=== PATIENT | male | born 1950 | race Caucasian/White ===

== ENCOUNTER 2022-05-26 17:14 | Inpatient (IN) | payer OTHER ==
[~2022-05-26] VITALS: Ht 172.7 cm; Wt 113.9 kg
[2022-05-26 17:40] VITALS: BP 132/81
--- NOTE | 2022-05-26 17:40 | NUR ---
Pt to bed 04 at this time.
--- NOTE | 2022-05-26 17:40 | NUR ---
72 y/o Male BIBA for c/o resp distess.Pt is AOx1(Baseline x 4), resp even and labored. Tachypneic and with a non-productive cough. Abd pain x 4 quadrants upon palpation. +BS x 4. Weak pedal pulses. Lungs c/d bilat. Currently on 15LPM VNRB. Pmhx: hypothyroidism, UTI Home meds: apixaban, diltiazem, amiodarone See chart for remainder
[2022-05-26] MEDS ORDERED: CEFEPIME 1,000 MG in DEXTROSE 5% 50 ML IV ONE (17:45)
[2022-05-26] MEDS ORDERED: NACL 0.9% 2,000 ML IV SCH (17:45)
--- NOTE | 2022-05-26 17:45 | NUR ---
Per meredith Ho to use PICC line for medication administration and blood draws.
[2022-05-26 18:15] LABS: BASOPHILS % (AUTO) 0.1 % (0.0-2.0); HEMATOCRIT 26.1 % (36-52); HEMOGLOBIN 8.3 g/dL (12.0-18.0); LYMPHOCYTES # (AUTO) 1.1 K/uL (2.0-11.5); LYMPHOCYTES % (AUTO) 9.8 % (20.5-51.1); MEAN CORPUSCULAR HEMOGLOBIN 30 pg (27-31); MEAN CORPUSCULAR HGB CONC 32 g/dL (33-37); MEAN CORPUSCULAR VOLUME 93.3 fL (80-94); MONOCYTES # (AUTO) 0.6 K/uL (0.8-1.0); NEUTROPHILS % (AUTO) 85.1 % (42.2-75.2); PLATELET COUNT (AUTO) 235 K/uL (140-450); RED BLOOD CELL COUNT(AUTO) 2.79 MIL/uL (4.20-6.10); RED CELL DISTRIBUTION WIDTH 16.1 % (11.6-13.7); WHITE BLOOD COUNT (AUTO) 11.7 K/uL (4.8-10.8)
[2022-05-26 18:49] LABS: ALBUMIN 1.2 g/dL (3.4-5.0); ANION GAP 10.9 (8-16); ASPARTATE AMINOTRANSFERASE 21 U/L (15-37); CARBON DIOXIDE 25.8 mmol/L (21-32); CHLORIDE 105 mmol/L (98-107); GLUCOSE 111 mg/dL (74-106); POTASSIUM 3.7 mmol/L (3.5-5.1); SODIUM SERUM 138 mmol/L (136-145); TOTAL BILIRUBIN 0.3 mg/dL (0.0-1.0); UREA NITROGEN, BLOOD 57 mg/dL (7-18)
[2022-05-26] MEDS ORDERED: CEFEPIME 1,000 MG VIAL ONE (18:53)
--- NOTE | 2022-05-26 19:08 | NUR ---
Pt from facility with F/C, replaced per order from Dr Lamb
--- NOTE | 2022-05-26 19:13 | NUR ---
Dr Lamb aware of all critical labs posted to system
[2022-05-26 19:22] LABS: APPEARANCE,URINE CLEAR (CLEAR); BILIRUBIN,URINE NEGATIVE (NEGATIVE); BLOOD, URINE 3+ (NEGATIVE); COLOR,URINE AMBER (YELLOW); LEUKOCYTE ESTERASE ,URINE TRACE (NEGATIVE); NITRITE, URINE NEGATIVE (NEGATIVE); UGLUCOSE NEGATIVE (NEGATIVE)
--- NOTE | 2022-05-26 19:22 | NUR ---
Dr Lamb present to view monitor aware of HR. NNO at this time
--- NOTE | 2022-05-26 19:35 | NUR ---
Pt report given to STELLA Van. Transfer of care at this time.
[2022-05-26 19:36] LABS: RBC,URINE 20-50 /HPF (0-5); WBC,URINE 0-5 /HPF (0-5)
[2022-05-26 19:37] LABS: OTHER CASTS, URINE None Seen /LPF (None Seen)
[2022-05-26] MEDS ORDERED: methylPREDNISolone SS 125 MG/2 ML VIAL IVP ONE (20:00)
[2022-05-26] MEDS ORDERED: methylPREDNISolone SS 125 MG/2 ML VIAL ONE (22:50)
--- NOTE | 2022-05-27 00:34 | NUR ---
PERICARE PERFORMED. MEPILEX IN PLACE OVER SMALL OPEN EXCORIATED SKIN. + SMALL LOOSE BM NOTED. PT TO BE ADMITTED TO THE FLOOR.
--- NOTE | 2022-05-27 01:29 | NUR ---
ATTEMPTED TO GIVE REPORT. RN TO CALL BACK FOR REPORT.
--- NOTE | 2022-05-27 02:09 | NUR ---
REPORT GIVEN TO LOUISA. PT IN STABLE CONDITION. TO BE TRANSPORTED TO ROOM 120B BY VERO ESCORTED BY RN AND EMT.
--- NOTE | 2022-05-27 02:30 | NUR ---
RECEIVED PT FROM ER CAME VIA VERO ADMITTED TO [facility] WITH CHIEF COMPLAINTS OF SOB, ABDOMINAL PAIN, DIAGNOSIS: ACUTE HYPOXIC RESPIRATORY FAILURE, ANEMIA, HYPERCALCEMIA, RENAL INSUFFICIENCY, CARDIOMEGALY AND ACUTE CYSTITIS/HEMATURIA. PT IS ABLE TO RESPONSE VERBALLY. PT IS WITH GENERAL BODY WEAKNESS, ABLE TO RESPONSE VERBALLY WITH 1 OR 2 WORDS THEN PT OUT AND NOT RESPONDING. MIDLINE OF SINGLE LUMEN IS ON RIGHT UPPER ARM INTACT AND PATENT. PT HAS RUTLEDGE CATHETER INTACT AND PATENT, DRAINING URINE OF YELLOW AND CLEAR COLOR. PT IS WITH NON PITTING EDEMA ON BLE. WILL CONTINUE TO MONITOR.
[2022-05-27] MEDS ORDERED: LEVOFLOXACIN 500 MG/D5W PREMIX 100 ML IV SCH (03:10)
[2022-05-27 04:00] VITALS: BP 115/63
[2022-05-27] MEDS: LEVOFLOXACIN 750 MG/D5W PREMIX 150 ML IV SCH (05:00)
[2022-05-27] MEDS: methylPREDNISolone SS 125 MG/2 ML VIAL IVP SCH ×3 (05:00→20:28)
[2022-05-27 06:00] VITALS: BP 128/60
--- NOTE | 2022-05-27 07:30 | NUR ---
RECEIVED REPORT FROM NIGHTSHIFT NURSE. PT A/O X 0. PT LETHARGIC. SOB NOTED. HOB ELEVATED. ON 3L NC. RUTLEDGE VIA GRAVITY. JASPAL MIDLINE. NEEDS ALL MET AT THIS TIME. ALL SAFETY MEASURES IN PLACE.
[2022-05-27 08:00] VITALS: BP 118/60
[2022-05-27] MEDS ORDERED: HYDROcodone/APAP 7.5/325 MG 1 TAB PO PRN (08:00)
[2022-05-27] MEDS ORDERED: guaiFENesin DM 200/20 MG-10 ML 10 ML UDC PO PRN (08:00)
[2022-05-27] MEDS ORDERED: ACETAMINOPHEN 325 MG TAB PO PRN (08:00)
[2022-05-27] MEDS ORDERED: DOCUSATE SODIUM 100 MG GELCAP PO PRN (08:00)
[2022-05-27] MEDS ORDERED: ONDANSETRON 4 MG/2 ML VIAL IM/IVP PRN (08:00)
[2022-05-27] MEDS ORDERED: ZOLPIDEM 5 MG TAB PO PRN (08:00)
[2022-05-27] MEDS ORDERED: POTASSIUM CHLORIDE 10 MEQ TABER PO PRN (08:00)
--- NOTE | 2022-05-27 08:25 | NUR ---
ULTRASOUND OF KIDNEYS COMPLETED AT BEDSIDE. FOUNTAIN BRUSH ASSEMBLER INFORMED O2 SATURATION @ 86%. CONNECTED PT TO CONTINUOUS PULSE OX. O2 SATURATION @ 91%. RT AT BEDSIDE. O2 SATURATION @ 92%. MEDICAL STUDENT AT BEDSIDE. SAFETY MEASURES IN PLACE.
[2022-05-27] MEDS: PANTOPRAZOLE 40 MG TABEC PO SCH (09:00)
[2022-05-27] MEDS: APIXABAN 2.5 MG TAB PO SCH ×2 (09:05→20:31)
[2022-05-27] MEDS: DILTIAZEM 60 MG TAB PO SCH ×2 (09:05→20:30)
--- NOTE | 2022-05-27 09:17 | NUR ---
SMALL AMOUNT OF APPLESAUCE GIVEN AND PT UNABLE TO SWALLOW. APPLESAUCE SUCTIONED OUT VIA ORAL SUCTION. PT TOLERATED WELL. NO SIGNS OF ASPIRATION. O2 SATURATION @ 94%. HOB ELEVATED. WILL CONTACT .
--- NOTE | 2022-05-27 09:36 | NUR ---
CONTACTED MD REGARDING PT UNABLE TO SWALLOW. MD ORDER FOR PT TO BE NPO. ORDERS INPUTTED.
--- NOTE | 2022-05-27 10:59 | NUR ---
DC PLANNIN YRS OLD MALE PATIENT WAS ADMITTED FROM [facility] WITH A DX OF HYPERCALCEMIA, HYPOXIA. CALCIUM LEVEL ON ADMISSION 14.0 ON HIGH FLOW 15L/NC . CXR SHOWED CARDIOMEGALY WITH BIBASILAR PATCHY INFILTRATES. RAPID COVID TEST NEGATIVE. ADMINISTERED IVF, IV ABX ZOSYN AND CONTINUED HOME MEDS. CONSULTED WITH PULMO, CARDIO AND NEPHRO. DC PLAN TO RETURN TO [facility] WHEN STABLE CM TO FOLLOW Addendum: 06/03/22 at 1116 by Kim Bill RN DC PLANNING: PATIENT CODED ON 05/28 AT 1212 INTUBATED SEDATED, ON LEVOPHED ,PROPOFOL, VASOPRESSIN AND VERSED DRIP. CONTINUED IV ABX ZOSYN, FLAGYL AND FLUCONAZOLE. ON HEMODIALYSIS. DR ALVAREZ REACHED OUT THE FAMILY AND FAMILY STATED WILL COME TO SEE PATIENT AND MAKE A DECISION. DC PLAN AWAITING FOR FAMILY. CM TO FOLLOW
--- NOTE | 2022-05-27 11:07 | NUR ---
SCREEN FOR LOW ISHMAEL SCALE AT RISK, CONTINUE TO FOLLOW PRESSURE ULCER PREVENTION INTERVENTIONS. -TURN AND REPOSITION PATIENT Q 2H, ASSIST IF NEEDED -ASSESS AND MONITOR SKIN CONDITION DURING POSITION CHANGES -OFFLOAD BILATERAL HEELS BY PLACING PILLOWS UNDER CALVES AT ALL TIMES, UNLESS OTHERWISE CONTRAINDICATED -PRESSURE REDISTRIBUTION BY PLACING PILLOWS AND OFFLOADING SACRALCOCCYX -KEEP SKIN CLEAN AND DRY AT ALL TIMES.
[2022-05-27 11:28] LABS: BASOPHILS % (AUTO) 0.1 % (0.0-2.0); HEMATOCRIT 24.9 % (36-52); LYMPHOCYTES # (AUTO) 0.5 K/uL (2.0-11.5); LYMPHOCYTES % (AUTO) 4.6 % (20.5-51.1); MEAN CORPUSCULAR HEMOGLOBIN 30 pg (27-31); MEAN CORPUSCULAR HGB CONC 32 g/dL (33-37); MEAN CORPUSCULAR VOLUME 93.9 fL (80-94); MONOCYTES # (AUTO) 0.1 K/uL (0.8-1.0); MONOCYTES % (AUTO) 1.2 % (1.7-9.3); NEUTROPHILS # (AUTO) 9.7 K/uL (1.8-7.7); NEUTROPHILS % (AUTO) 94.1 % (42.2-75.2); PLATELET COUNT (AUTO) 205 K/uL (140-450); RED BLOOD CELL COUNT(AUTO) 2.65 MIL/uL (4.20-6.10); RED CELL DISTRIBUTION WIDTH 15.8 % (11.6-13.7); WHITE BLOOD COUNT (AUTO) 10.3 K/uL (4.8-10.8)
[2022-05-27 11:46] LABS: ANION GAP 9.2 (8-16); CARBON DIOXIDE 25.5 mmol/L (21-32); CHLORIDE 111 mmol/L (98-107); GLUCOSE 131 mg/dL (74-106); POTASSIUM 3.7 mmol/L (3.5-5.1); SODIUM SERUM 142 mmol/L (136-145)
[2022-05-27 11:50] LABS: UREA NITROGEN, BLOOD 65 mg/dL (7-18)
[2022-05-27 12:00] VITALS: BP 122/67
--- NOTE | 2022-05-27 12:00 | NUR ---
CONTACTED MD REGARDING CALCIUM LEVEL AND PT'S (LISAS) INFORMATION ON PT'S WEIGHT LOSS AND LOSS OF APPETITE. NEEDS ALL MET AT THIS TIME. PT'S O2 SATURATION @ 92%. PT IS MORE ALERT THAN THIS AM. PT ABLE TO ANSWER YES AND NO QUESTIONS. ALL NEEDS MET. ALL SAFETY MEASURES IN PLACE.
[2022-05-27 12:02] LABS: CHOL/HDL RATIO 1.9 (1-4.5); FREE T4 (FREE THYROXINE) 1.09 ng/dL (0.76-1.46); MAGNESIUM 1.5 mg/dL (1.8-2.4); PHOSPHORUS 3.6 mg/dL (2.5-4.9); THYROID STIMULATING HORMONE 1.17 uIU/mL (0.34-3.74)
[2022-05-27] MEDS ORDERED: PAMIDRONATE IV SCH (14:00)
[2022-05-27] MEDS ORDERED: NACL 0.9% IV SCH (14:00)
--- NOTE | 2022-05-27 14:00 | NUR ---
PT ON 4.5L WITH HUMIDIFIER VIA NC. 02 SATURATION @ 93%. HOB ELEVATED. BRIDGE EXPERT AT BEDSIDE.
--- NOTE | 2022-05-27 15:24 | NUR ---
PT NOTED WITH COUGH AND GURGLING. O2 SATURATION @ 68%, HR @ 106. RT CALLED AND PT SUCTIONED. BLOOD GLUCOSE VIA FINGERSTICK IS 109. VITAL SIGNS: 98.6, 98, 16, 136/63, 97% ON 15L HIGH FLOW. HOB ELEVATED. ALL SAFETY MEASURES IN PLACE.
--- NOTE | 2022-05-27 15:26 | NUR ---
RT NOTES RT CALLED TO PT ROOM DUE TO PT DESATURATION TO THE 60s. PUT PT ON 15L GREEN NC WITH HUMIDIFIER. RT NTS PT AND GOT LRG THICK MCCURDY SECRETIONS OUT. PT FOLLOWED INSTRUCTIONS TO COUGH WHILE SUCTIONING WAS TAKING PLACE. AFTER SUCTIONING PT STATED HE COULD BREATHE BETTER WHEN ASKED. SATURATIONS WENT UP TO 96%. NURSE AND RT AT BEDSIDE. WILL CONTINUE TO MONITOR.
[2022-05-27 16:00] VITALS: BP 118/78
--- NOTE | 2022-05-27 16:30 | NUR ---
CONTACTED MD REGARDING MAGNESIUM LEVEL. MD WILL INPUT ORDERS. WILL ADMINISTER PER MD ORDER.
--- NOTE | 2022-05-27 16:54 | NUR ---
P.T. NOTES HOLD P.T. EVAL AT THIS TIME DUE TO RESP ISSUES; FF UP TOMORROW IF ABLE.
[2022-05-27] MEDS ORDERED: MAG SULF 2000 MG/WATER PREMIX 50 ML IV SCH (17:00)
--- NOTE | 2022-05-27 19:10 | NUR ---
REPORT GIVEN TO NIGHTSHIFT NURSEGUERITA. JORDAN BRITO.
--- NOTE | 2022-05-27 19:20 | NUR ---
RECEIVED PATIENT IN BED, ASLEEP, OPENS EYES ON VERBAL STIMULI. NO S/SX OF PAIN NOR DISCOMFORT. NO ACUTE RESPIRATORY DISTRESS NOTED. SKIN WARM AND DRY TO TOUCH. BED IN THE LOWEST AND LOCKED POSITION FOR SAFETY, CALL LIGHT IN REACH.
[2022-05-27 20:00] VITALS: BP 145/68
[2022-05-27] MEDS: METOPROLOL 25 MG TAB PO SCH (20:31)
[2022-05-27 20:47] LABS: BARBITURATE, URINE NEGATIVE ng/ml (NEG <=200); BENZODIAZEPINE, URINE NEGATIVE ng/mL (NEG <=200); CANNABINOID, URINE NEGATIVE ng/mL (NEG <=50); COCAINE, URINE NEGATIVE ng/mL (NEG <=300); OPIATE, URINE NEGATIVE ng/mL (NEG <=2000); PHENCYCLIDINE SCREEN,URINE NEGATIVE ng/mL (NEG <=25)
--- NOTE | 2022-05-27 22:10 | NUR ---
PATIENT ASLEEP. BREATHING EVEN AND UNLABORED. CALL LIGHT IN REACH.
[2022-05-28] VITALS (28 sets, daily range): BP systolic 65–148; BP diastolic 39–114
--- NOTE | 2022-05-28 | NUR ---
REPOSITIONED FOR COMFORT. ORAL CARE DONE. NO DISTRESS NOTED. CALL LIGHT IN REACH.
--- NOTE | 2022-05-28 04:30 | NUR ---
AM CARE RENDERED, WOUND CARE DONE. REPOSITIONED FOR COMFORT. CALL LIGHT IN REACH.
[2022-05-28] MEDS: methylPREDNISolone SS 125 MG/2 ML VIAL IVP SCH ×3 (05:16→20:37)
[2022-05-28] MEDS: LEVOTHYROXINE 0.05 MG TAB PO SCH (05:20)
[2022-05-28 06:21] LABS: BASOPHILS % (AUTO) 0.2 % (0.0-2.0); EOSINOPHILS % (AUTO) 0.1 % (0.0-4.0); HEMATOCRIT 25.2 % (36-52); HEMOGLOBIN 8.1 g/dL (12.0-18.0); LYMPHOCYTES # (AUTO) 0.6 K/uL (2.0-11.5); LYMPHOCYTES % (AUTO) 5.4 % (20.5-51.1); MEAN CORPUSCULAR HEMOGLOBIN 30 pg (27-31); MEAN CORPUSCULAR HGB CONC 32 g/dL (33-37); MEAN CORPUSCULAR VOLUME 94.4 fL (80-94); MONOCYTES # (AUTO) 0.3 K/uL (0.8-1.0); MONOCYTES % (AUTO) 2.9 % (1.7-9.3); NEUTROPHILS # (AUTO) 9.5 K/uL (1.8-7.7); NEUTROPHILS % (AUTO) 91.4 % (42.2-75.2); PLATELET COUNT (AUTO) 213 K/uL (140-450); RED BLOOD CELL COUNT(AUTO) 2.67 MIL/uL (4.20-6.10); WHITE BLOOD COUNT (AUTO) 10.4 K/uL (4.8-10.8)
--- NOTE | 2022-05-28 06:21 | NUR ---
ALL NEEDS ATTENDED TO.NO DISTRESS NOTED. SAFETY PRECAUTIONS MAINTAINED DURING THE SHIFT. CALL LIGHT REMAINED WITHIN REACH.
[2022-05-28 07:21] LABS: ANION GAP 11.9 (8-16); CARBON DIOXIDE 23.4 mmol/L (21-32); CHLORIDE 116 mmol/L (98-107); GLUCOSE 137 mg/dL (74-106); POTASSIUM 3.3 mmol/L (3.5-5.1); SODIUM SERUM 148 mmol/L (136-145)
--- NOTE | 2022-05-28 07:30 | NUR ---
RECEIVED REPORT FROM NIGHTSHIFT NURSE. PT ASLEEP. SOB NOTED. HOB ELEVATED. ON 10L HIGH FLOW NC. RUTLEDGE VIA GRAVITY. JASPAL MIDLINE. NEEDS ALL MET AT THIS TIME. ALL SAFETY MEASURES IN PLACE.
[2022-05-28 07:52] LABS: CREATININE 2.3 mg/dL (0.6-1.3)
[2022-05-28 08:10] LABS: UREA NITROGEN, BLOOD 82 mg/dL (7-18)
[2022-05-28] MEDS: METOPROLOL 25 MG TAB PO SCH (09:00)
[2022-05-28] MEDS ORDERED: AMIODARONE 200 MG TAB PO SCH (09:00)
[2022-05-28] MEDS: DILTIAZEM 60 MG TAB PO SCH (09:00)
[2022-05-28] MEDS: APIXABAN 2.5 MG TAB PO SCH (09:00)
[2022-05-28] MEDS: PANTOPRAZOLE 40 MG TABEC PO SCH (09:00)
[2022-05-28] MEDS: DOXAZOSIN 2 MG TAB PO SCH (09:00)
[2022-05-28] MEDS ORDERED: hydrALAZINE 20 MG/ML VIAL IVP PRN (09:20)
[2022-05-28] MEDS: DEXT 5% /NACL 0.9% 1,000 ML IV SCH ×2 (09:34→20:09)
[2022-05-28] MEDS ORDERED: POTASSIUM CHLORIDE 40 MEQ, LIDOCAINE MPF 1% 25 MG in NACL 0.9% 250 ML IV ONE (10:00)
--- NOTE | 2022-05-28 11:20 | NUR ---
WAS NOTIFIED BY NURSE ESPARZA THAT PT HAD TO MOVE ROOMS. NURSE ESPARZA MOVING PT TO ROOM 111A AND RECONNECTED TO OXYGEN.
--- NOTE | 2022-05-28 11:24 | NUR ---
PT NOTED WITH OXYGEN @ 86%. OXYGEN INCREASED TO 15 L HIGH FLOW NC. RT CALLED. HOB ELEVATED. SUCTION CATHETER AT BEDSIDE WAITING FOR RT.
--- NOTE | 2022-05-28 11:25 | NUR ---
NURSE CALLED;PT SATURATION DROPPED TO THE 70S. NTS PT SATURATION IS 96%. SUCTIONED OUT THICK AMOUNT PALE YELLOW SPUTUM.
[2022-05-28] MEDS ORDERED: ALBUTEROL SULFATE/IPRATROPIU 3 ML SOL IH PRN (11:50)
[2022-05-28] MEDS ORDERED: guaiFENesin 20 MG/ML UDC PO PRN (11:50)
--- NOTE | 2022-05-28 11:50 | NUR ---
RAPID RESPONSE CALLED. PT O2 SATURATION @ 64%. RT AT BEDSIDE SUCTIONING WITH SUCTION TRAY [address] HANDLEY AND DR. KAPOOR AT BEDSIDE EXAMINING PT.
--- NOTE | 2022-05-28 12:00 | NUR ---
12:00 ETOMIDATE AND BEAU GIVEN PER MD ORDERED. PT INTUBATED AT 12:02 WITH 75 INCH AT TEETH WITH COLOR CHANGE DETECTOR. 12:12 CODE BLUE CALLED. SEE CODE BLUE SHEET. 12:18 PULSE CHECK WITH POSITIVE DOPPLER PULSE 12:30 BP 74/44, HR 113 12:30 REPORT GIVEN TO ICU NURSE FREEDOM. MD AT BEDSIDE INSERTING CENTRAL LINE. XRAY DONE AT BEDSIDE. MD OUTSIDE ROOM UPDATING EX- (SHARI ORTIZ). 12:50 CODE BLUE CALLED. REFER TO CODE BLUE SHEET 12:53 PULSE CHECK WITH POSITIVE DOPPLER PULSE 13:00 PT TRANSFERRED TO ICU. SPOKE WITH NURSE FREEDOM STATING CHRISTIANO MCKEON IS THE DECISION MAKER AND NOT SHARI DIANA. 13:05 SPOKE WITH DAUGHTER CHRISTIANO MCKEON WITH UPDATE AND TRANSFERRED PHONE CALL TO ICU.
--- NOTE | 2022-05-28 12:00 | NUR ---
RN CALLED PT SATS DROPPED TO THE 50S,RAPID CALLED, NTS 3 TIMES, PUT PT ON NR, RAPID RESPONSE TURNED CODE BLUE. INTUBATED WITH SIZE 7.5, 25@LIP. TRANSFERRED TO ICU BED 6 WITHOUT COMPLICATION. CURRENT SETTING ARE ACVC 550, R25, PEEP 10,100%. WHEELS ARE LOCKED AND PLUGGED INTO RED OUTLET, ALARMS ARE SET AND AUDIBLE, AMBUBAG AT BEDSIDE.
[2022-05-28] MEDS ORDERED: PROPOFOL 1000 MG/100 ML PREMIX 0 ML IV ONE (12:02)
[2022-05-28] MEDS ORDERED: PROPOFOL 1000 MG/100 ML PREMIX 100 ML IV ONE (12:03)
--- NOTE | 2022-05-28 12:23 | NUR ---
RECEIVED REPORT FROM ANA ANTOINE RN, AT 111A BEDSIDE, FOR CONTINUITY OF CARE. PT STILL IN TELE RECEIVING CENTRAL LINE INSERTION BY ER . WILL RECEIVE PT SHORTLY.
[2022-05-28] MEDS ORDERED: NOREPINEPHRINE 4 MG in DEXTROSE 5% 250 ML IV PRN (12:30)
[2022-05-28] MEDS: ALBUTEROL SULFATE/IPRATROPIU 3 ML SOL IH SCH ×2 (13:00→19:16)
--- NOTE | 2022-05-28 13:13 | NUR ---
PT ARRIVED TO ICU6 VIA TELE BED W ASSIST FROM RT AND CODE TEAM. PT SUPINE IN THE BED. PT AAOX0, NOT RESPONSIVE. ETT IN PLACE. RT BAGGING AT THIS TIME, SPO2 100%. JUNCTIONAL RHYTHM W PVCS HR 111, BP 113/87. JASPAL MIDLINE SINGLE LUMEN IN PLACE INFUSING LEVOPHED AT 8 MCG/MIN. RIJ CENTRAL LINE RECENTLY INSERTED PENDING PLACEMENT CONFIRMATION. NO GTUBE IN PLACE. BOWEL SOUNDS ACTIVE. FC TO GRAVITY. SEVERE WEAKNESS TO ALL EXTREMITIES. SKIN INTACT. ON STANDARD ISOLATION. CALL LIGHT WITHIN REACH. SAFETY PRECAUTIONS MET. INITIAL ASSESSMENT COMPLETE. WILL CONTINUE TO CLOSELY MONITOR.
--- NOTE | 2022-05-28 13:30 | NUR ---
NGT INSERTED TO L NARE.
--- NOTE | 2022-05-28 13:39 | NUR ---
PHONE CALL TO PT DAUGHTER CHRISTIANO AT [phone]. DISCUSSED PT CONDITION, PROGNOSIS, AND PLAN OF CARE. CHRISTIANO WISHES TO SPEAK W PT "PARTNER" SHARI. SHARI AT ICU STATION SPEAKING W CHRISTIANO VIA ICU PHONE. TOGETHER THEY AGREE TO CONTINUE FULL CODE. WILL CONTINUE TO UPDATE PT CHANGES.
--- NOTE | 2022-05-28 14:13 | NUR ---
SPOKE WITH DR KAPOOR VIA PHONE, HE ORDERED PHENYLEPHRINE DRIP AND VASOPRESSIN DRIP FOR BP SUPPORT.
--- NOTE | 2022-05-28 14:13 | NUR ---
05/28/22 RD INITIAL ASSESSMENT COMPLETED PLEASE REFER TO NUTRITION ASSESSMENT UNDER CARE ACTIVITY FOR ESTIMATED NUTRITIONAL NEEDS. 1. MONITOR NPO 2. CONSULT RD PRN. 3. RD TO FOLLOW-UP 2-3 DAYS, HIGH RISK REVIEWED BY LEE VALENCIA RD Addendum: 05/29/22 at [address] RECEIVED CONSULT FOR TUBE FEEDING. RECOMMEND NEPRO 1.8 WITH A GOAL RATE OF 40 ML/HR -FWF: 100 ML Q4H OR PER MD -START AT 10 ML/HR AND INCREASE BY 10 ML Q4H TOLERATED -WILL PROVIDE 100% OF ESTIMATED NUTRIENT NEEDS RD WILL CONTINUE TO MONITOR. LEE VALENCIA RD
[2022-05-28] MEDS ORDERED: PHENYLEPHRINE 10 MG in NACL 0.9% 250 ML IV PRN (14:15)
[2022-05-28] MEDS ORDERED: PROPOFOL 1000 MG/100 ML PREMIX 100 ML IV SCH (14:30)
[2022-05-28] MEDS ORDERED: VASOPRESSIN 20 UNITS in NACL 0.9% 250 ML IV SCH (14:55)
[2022-05-28] MEDS: PROPOFOL 1000 MG/100 ML PREMIX 100 ML IV PRN ×2 (15:04→23:56)
--- NOTE | 2022-05-28 15:45 | NUR ---
DC PLANNING SW OUTREACHED TO [facility] TO GATHER COLLATERAL INFORMATION. SPOKE WITH [facility] FACILITY ADMIN. REECE REPORTS THAT PATIENT HAS BEEN IN SKILLED CARE SINCE APRIL 17. PT RECEIVES PHYSICAL THERAPY AND OCCUPATIONAL THERAPY. REECE REPORTS PATIENT HAS BEEN HOSPITALIZED OVER THE LAST FEW WEEKS. PATIENT WAS HOSPITALIZED WITH [facility] ON MAY 14, RETURNED TO THE FACILITY 05/19 AND WAS AGAIN ADMITTED ON 05/26 TO [facility]. REECE REPORTS SEEING RAPID DECLINE IN PATIENTS HEALTH OVER THE LAST FEW WEEKS. PATIENTS DAUGHTERCHRISTIANO [phone] WHO IS REPORTED TO BE ACTIVE IN PATIENTS CAR. PREVIOUS TO SNF PLACEMENT PATIENT WAS REPORTED TO LIVE WITH HIS PARTNER, SHARI. REECE REPORTS PATIENT HAS ABILITY TO MAKE NEEDS KNOWN AND RESPONDS WITH SHORT SIMPLE RESPONSES. PATIENT IS TOTAL ASSIST AND UTILIZES A WC AT FACILITY. DC PLAN IS FOR PATIENT TO RETURN TO WHEN MEDICALLY STABLE. SW ATTEMPTED TO MAKE CONTACT WITH PATIENTS DAUGHTERCHRISTIANO, TO GATHER ADDITIONAL INFORMATION AND TO OFFER RESOURCES, HOWEVER, UNSUCCESSFUL.
--- NOTE | 2022-05-28 16:00 | NUR ---
DR MILI ORTIZ AT BEDSIDE, DISCUSSED PT CONDITION AND RECENT EVENTS. ORDERED CTA CHEST STAT TO RULE OUT AORTIC DISSECTION AND/OR PULMONARY EMBOLISM. OBTAINED TELEPHONE CONSENT FROM PT DAUGHTER CHRISTIANO AT [phone]. WITNESS WITH MARNIE DOUGLAS. UPDATED CHRISTIANO REGARDING PT CONDITION AND PLAN OF CARE. ALL QUESTIONS ANSWERED.
[2022-05-28] MEDS: PHENYLEPHRINE 40 MG in NACL 0.9% 250 ML IV PRN ×2 (16:15→20:35)
[2022-05-28] MEDS: NOREPINEPHRINE 16 MG in DEXTROSE 5% 250 ML IV PRN (16:15)
--- NOTE | 2022-05-28 16:50 | NUR ---
TRANSFERRED PT TO AND FROM CT SAFELY. NO [id number]. PT RETURNED TO VENT SETTING ACVC 550,RR25,PEEP10,100%. WHEELS LOCKED AND VENT PLUGGED INTO RED OUTLET, ALARMS ARE SET AND AUDIBLE. AMBUBAG AT BEDSIDE.
--- NOTE | 2022-05-28 17:00 | NUR ---
PT TAKEN TO CT WITH ASSIST FROM JEFF DORSEY.
--- NOTE | 2022-05-28 17:33 | NUR ---
PT BACK TO ICU6 FROM CT.
--- NOTE | 2022-05-28 18:35 | NUR ---
reported cta chest results (bl pneumothorax) to dr swann and dr osman. dr osman order to obtain consent for bl chest tube insertion.
--- NOTE | 2022-05-28 19:08 | NUR ---
called pt daughter to update regarding pt condition and plan of care. obtained telephone informed consent from jacquelyn pt daughter for bl chest tube insertion. witness with lluvia mcgarry. jacquelyn verbalized understanding, all questions answered.
--- NOTE | 2022-05-28 19:15 | NUR ---
endorsed bedside report to gigi pike rn for continuity of care. pt in no acute distress. vss.
--- NOTE | 2022-05-28 19:15 | NUR ---
RECEIVED REPORT FROM FREEDOM DOUGLAS. PT IS SEMI-COMATOSE, HE RESPONDS MINIMALLY TO NOXIOUS STIMULI. HE CURRENTLY ON THE VENTILATOR VIA ETT S/P 3 CODE BLUES IN 1 HOUR TODAY. HE'S ON THREE PRESSOR TO MAINTAIN A SYSTOLIC BLOOD PRESSURE ABOVE 90. HIS CURRENT BLOOD PRESSURE IS 124/72. HIS SKIN IS SLIGHTLY DAMP AND THE COLOR IS PALE. NAIL BLACHING IS SLIGHTLY PROLONG HE IS WARM TO TOUCH. HE HAS A NGT IN THE LEFT NARE' NO FEEDING AT THIS TIME
--- NOTE | 2022-05-28 20:30 | NUR ---
DR. EVANS CALLED AND THE CHEST XRAY REPORT WAS READ TO HIM OVER THE PHONE ; HE SAID HE'D BE COMING IN T DO THE CHEST TUBE. PT HAS A RUTLEDGE CATH IN PLACE DRAINING A VERY SMALL AMT OF URINE , BUT THE OUTPUT IS CLOUDY AND BLOOD TINGED AND MAYBE PUSS IN THE URINE WELL.
--- NOTE | 2022-05-28 21:10 | NUR ---
DR. EVANS IS HERE ASSESSING THE PATIENT AFTER READING THE XRAY REPORT. BY 2129 HE IS PLACING THE CHEST TUBE INTO THE LEFT CHEST WALL. THE TUBE IS CONNECTED TO THE ATRIUM AND 20CM WATER IN THE RIRST CHAMBER AND THE 2ND CHAMBER IS FILLED TO THE BLUE FILL LINE . IT'S NOW CONNECT TO LOW CONTINOUS SUCTION. SUTURED THE TUBE IN PLACE AND PLACED A STERILE GUAZE DRSG AND TAPED IT IN PLACE. EXTRA TAPE WAS PLACE ON THE TUBE BELOW THE CHEST WAL TO PREVENT PULLING ON THE TUBE.XRAY WAS DONE TO VERIFY PROPER PLACEMENT OF THE CHEST TUBE.
[2022-05-28] MEDS ORDERED: LIDOCAINE MPF 1% 5 ML ONE ×2 (21:22→21:26)
[2022-05-28] MEDS ORDERED: MORPHINE SULFATE 4 MG/ML SYR ONE (21:25)
--- NOTE | 2022-05-28 21:35 | NUR ---
PEEP TITRATED FROM 12vxQ91 TO 5cmH20 AFTER CHEST TUBE PLACEMENT. DR. EVANS AT BEDSIDE. SPO2 100%. PT IS IN NO RESPIRATORY DISTRESS AT THIS TIME
[2022-05-28] MEDS ORDERED: LIDOCAINE MPF 1% 10 MG/ML VIAL INJ SCH (21:55)
[2022-05-28] MEDS ORDERED: MORPHINE SULFATE 4 MG/ML SYR IVP SCH (21:55)
[2022-05-28] MEDS: LIDOCAINE MPF 1% 10 MG/ML VIAL INJ SCH ×2 (22:22→22:23)
[2022-05-29] VITALS (53 sets, daily range): BP systolic 96–151; BP diastolic 51–82
[2022-05-29] MEDS: NOREPINEPHRINE 16 MG in DEXTROSE 5% 250 ML IV PRN (03:05)
--- NOTE | 2022-05-29 03:30 | NUR ---
PHONE CALL TO PTS DAUGHTER CHRISTIANO, UPDATED ON PTS PRESENT CONDITION.QUESTIONS ANSWERED
[2022-05-29] MEDS: PROPOFOL 1000 MG/100 ML PREMIX 100 ML IV PRN ×3 (04:30→18:32)
[2022-05-29] MEDS: LEVOFLOXACIN 750 MG/D5W PREMIX 150 ML IV SCH (04:45)
[2022-05-29] MEDS: methylPREDNISolone SS 125 MG/2 ML VIAL IVP SCH ×3 (04:46→20:06)
--- NOTE | 2022-05-29 06:14 | NUR ---
TEXT CONCERNING TO THE EXCESS FLUID INTAKE VS THE OUTPUT, 1718CC INTAKE AND 100CC OUTPUT. VENKAT TEXT DR. EVANS.
[2022-05-29 06:42] LABS: BASOPHILS % (AUTO) 0.2 % (0.0-2.0); HEMATOCRIT 24.7 % (36-52); HEMOGLOBIN 8.2 g/dL (12.0-18.0); LYMPHOCYTES # (AUTO) 0.4 K/uL (2.0-11.5); LYMPHOCYTES % (AUTO) 1.9 % (20.5-51.1); MEAN CORPUSCULAR HEMOGLOBIN 31 pg (27-31); MEAN CORPUSCULAR HGB CONC 33 g/dL (33-37); MEAN CORPUSCULAR VOLUME 92.6 fL (80-94); MONOCYTES # (AUTO) 1.1 K/uL (0.8-1.0); MONOCYTES % (AUTO) 5.8 % (1.7-9.3); NEUTROPHILS # (AUTO) 17.3 K/uL (1.8-7.7); NEUTROPHILS % (AUTO) 92.1 % (42.2-75.2); PLATELET COUNT (AUTO) 263 K/uL (140-450); RED BLOOD CELL COUNT(AUTO) 2.67 MIL/uL (4.20-6.10); RED CELL DISTRIBUTION WIDTH 15.9 % (11.6-13.7); WHITE BLOOD COUNT (AUTO) 18.8 K/uL (4.8-10.8)
[2022-05-29] MEDS: LEVOTHYROXINE 0.05 MG TAB PO SCH (06:44)
[2022-05-29 06:52] LABS: ANION GAP 15.5 (8-16); CARBON DIOXIDE 20.7 mmol/L (21-32); CHLORIDE 116 mmol/L (98-107); CREATININE 2.9 mg/dL (0.6-1.3); GLUCOSE 160 mg/dL (74-106); POTASSIUM 3.2 mmol/L (3.5-5.1); SODIUM SERUM 149 mmol/L (136-145)
[2022-05-29] MEDS: ALBUTEROL SULFATE/IPRATROPIU 3 ML SOL IH SCH ×3 (06:57→21:45)
--- NOTE | 2022-05-29 07:00 | NUR ---
RECEIVED PT ON ACVC TV550,RR25,+5,70%FIO2. WHEELS ARE LOCKED AND VENT PLUGGED INTO RED OUTLET. ALARMS ARE SET AND AUDIBLE. AMBUBAG AT BEDSIDE. DIMINISHED BREATH SOUNDS, SUCTIONED MODERATE AMOUNT OF THICK PALE SPUTUM, SATURATION ON 70%FIO2 WAS 98%.
--- NOTE | 2022-05-29 07:15 | NUR ---
REPORT RECEIVED FROM STELLA NAVARRO. PT SEDATED AND WITH ETT TO VENT ON ACVC MODE FIO2 70%. RATE 25 PEEP 5 TV 550. PATIENT HAS LEFT CHEST TUBE TO SUCTION, SUBCUTANEOUS EMPHYSEMA PRESENT TO LEFT CHEST. PATIENT HAS NOREPINEPHRINE INFUSING AT 15 MCG/MIN AND PROPOFOL AT 25 MCG/KG/MIN. PATIENT WITHDRAWS FROM DEEP STIMULUS TO RIGHT SIDE OF BODY--NO MOVEMENT NOTED TO LEFT, PERRL 2 mm BRISK PUPILS, POSITIVE COUGH AND GAG. PATIENT HAS RIGHT IJ TL CVC, R UPPER ARM MIDLINE, RUTLEDGE CATHETER. PATIENT HAS WOUND TO SACRUM.
[2022-05-29 07:22] LABS: UREA NITROGEN, BLOOD 102 mg/dL (7-18)
--- NOTE | 2022-05-29 08:30 | NUR ---
ATTEMPTED TO SEE PATIENT FOR PHYSICAL THERAPY EVALUATION HOWEVER PATIENT HAD CHANGE IN CONDITION AND IS NOW INTUBATED/ ICU STATUS. WILL NEED NEW ORDER WHEN PATIENT IS APPROPRIATE; AFRICAN STUDIES PROFESSOR AWARE.
--- NOTE | 2022-05-29 09:05 | NUR ---
DR. EVANS TO BEDSIDE. NEW ORDERS RECEIVED. REPORTED ELEVATED BUN AND CREATNINE. STATES THAT SUSPENDER MAKER CONSULTED AND WILL BE TO BEDSIDE FOR FOLLOW UP.
[2022-05-29] MEDS: DOXAZOSIN 2 MG TAB PO SCH (09:28)
[2022-05-29] MEDS: PANTOPRAZOLE 40 MG TABEC PO SCH (09:28)
--- NOTE | 2022-05-29 11:15 | NUR ---
DR. MERCADO TO BEDSIDE TO ASSESS PATIENT. ORDERS RECEIVED TO CONTINUE IV FLUIDS AT 80 ML/HR.
[2022-05-29] MEDS: DEXT 5% /NACL 0.9% 1,000 ML IV SCH ×2 (11:48→23:59)
[2022-05-29] MEDS ORDERED: PIPERACILLIN/TAZOBACTAM 2.25 GM in DEXTROSE 5% 50 ML IV SCH (13:00)
[2022-05-29] MEDS: PIPERACILLIN/TAZOBACTAM 2.25 GM in DEXTROSE 5% 50 ML IV SCH ×2 (13:12→18:18)
--- NOTE | 2022-05-29 13:50 | NUR ---
DR. GARCES AT BEDSIDE TO ASSESS PATIENT. NO NEW ORDERS RECEIVED.
--- NOTE | 2022-05-29 14:30 | NUR ---
DR. KAPOOR AT BEDSIDE TO ASSESS PATIENT. NO NEW ORDERS RECEIVED.
--- NOTE | 2022-05-29 15:15 | NUR ---
PATIENT'S EX-, SHARI, AT BEDSIDE TO VISIT. QUESTIONS ANSWERED ABOUT HIS CURRENT STATUS AND UPDATE FROM OVERNIGHT. SHE VERBALIZES UNDERSTANDING.
--- NOTE | 2022-05-29 19:45 | NUR ---
REPORT RECEIVED FROM AM SHIFT STELLA DYE. PATIENT RASS -3. VENT SETTINGS ACVC FI02 70 VT 550 RATE 25 PEEP 5 [address]PE[address] 23. CHEST TUBE IN PLACE TO LEFT LATERAL CHEST. NO OUTPUT NOTED AT THIS TIME. NGT TO LEFT NARES. TUBE FEEDING NEPRO 10ML/HR 100ML Q6HR FLUSH. RUTLEDGE CATHETER IN PLACE AND DRAINING WELL. SR TO BEDSIDE MONITOR. PERIPHERAL PULSES FELT TO ALL EXTREMITIES. IV ACCESS RIGHT IJ TRIPLE CVC AND MIDLINE TO JASPAL. LEVO 12MCG/MIN. PROPOFOL 20MCG/KG/MIN. D5NS 80ML/HR. NO S/SX OF PAIN NOTED AT THIS TIME. FLACC 0.
[2022-05-29] MEDS: POTASSIUM CHLORIDE 20% 40 MEQ/15 ML UDC GT PRN (20:06)
--- NOTE | 2022-05-29 22:00 | NUR ---
FLACC 0. ALL PM MEDS GIVEN.
[2022-05-30] VITALS (32 sets, daily range): BP systolic 80–128; BP diastolic 46–102
--- NOTE | 2022-05-30 01:00 | NUR ---
PT REPOSITIONED. RESIDUAL 30CC.
[2022-05-30] MEDS: NOREPINEPHRINE 16 MG in DEXTROSE 5% 250 ML IV PRN (01:45)
--- NOTE | 2022-05-30 03:00 | NUR ---
PT TEMP 98.2.
[2022-05-30] MEDS: methylPREDNISolone SS 125 MG/2 ML VIAL IVP SCH ×3 (05:35→21:22)
[2022-05-30 06:26] LABS: HEMATOCRIT 25.7 % (36-52); HEMOGLOBIN 8.2 g/dL (12.0-18.0); MEAN CORPUSCULAR HEMOGLOBIN 30 pg (27-31); MEAN CORPUSCULAR HGB CONC 32 g/dL (33-37); MEAN CORPUSCULAR VOLUME 93.6 fL (80-94); PLATELET COUNT (AUTO) 205 K/uL (140-450); RED BLOOD CELL COUNT(AUTO) 2.74 MIL/uL (4.20-6.10); RED CELL DISTRIBUTION WIDTH 16.2 % (11.6-13.7)
[2022-05-30] MEDS: PIPERACILLIN/TAZOBACTAM 2.25 GM in DEXTROSE 5% 50 ML IV SCH ×5 (06:31→20:25)
[2022-05-30] MEDS: LEVOTHYROXINE 0.05 MG TAB PO SCH (06:31)
[2022-05-30 06:52] LABS: ANION GAP 16.8 (8-16); CHLORIDE 115 mmol/L (98-107); CREATININE 3.3 mg/dL (0.6-1.3); GLUCOSE 156 mg/dL (74-106); POTASSIUM 3.8 mmol/L (3.5-5.1); SODIUM SERUM 148 mmol/L (136-145)
[2022-05-30] MEDS: ALBUTEROL SULFATE/IPRATROPIU 3 ML SOL IH SCH ×3 (06:56→19:24)
[2022-05-30 06:59] LABS: UREA NITROGEN, BLOOD 127 mg/dL (7-18)
--- NOTE | 2022-05-30 07:00 | NUR ---
RECEIVED PT ON ACVC TV 550,RR25,+5, 55%. SATURATION WAS 98%. VENT PLUGGED INTO RED OUTLET, WHEELS LOCKED, AMBUBAG AT BEDSIDE, ALARMS ARE SET AND AUDIBLE. DIMINISHED BREATH SOUNDS WERE HEARD ON AUSCULTATION, CHEST TUBE ON LEFT SIDE.
--- NOTE | 2022-05-30 07:10 | NUR ---
REPORT RECEIVED FROM STELLA BENOIT. PATIENT SEDATED WITH PROPOFOL INFUSION AND HAS ETT TO VENTILATOR. VENTILATOR MODE ACVC FIO2 55%, RATE 25, PEEP, 5, TV 550. PATIENT O2 SAT 97%. PATIENT HAS LEFT CHEST TUBE IN PLACE TO SUCTION. SUBCUTANEOUS EMPHYSEMA NOTED TO LEFT CHEST. PATIENT HAS NOREPINEPHRINE DRIP AT RATE 8 MCG/MIN. PATIENT HAS RIGHT IJ CVC, JASPAL MIDLINE, RIGHT NARE NGT WITH CONTINUOUS TUBE FEEDING, RUTLEDGE CATHETER WITH LOW UOP NOTED.
--- NOTE | 2022-05-30 07:23 | NUR ---
REPORT GIVEN TO AM SHIFT STELLA DYE.
[2022-05-30 07:34] LABS: LYMPHOCYTES % (MANUAL) 2 % (20-46); MONOCYTES % (MANUAL) 4 % (5-12); MYELOCYTES % 5 % (0-0); WHITE BLOOD COUNT (AUTO) 25.2 K/uL (4.8-10.8)
--- NOTE | 2022-05-30 08:52 | NUR ---
PATIENT'S DAUGHTER, CHRISTIANO CALLS FOR UPDATE ON CONDITION. QUESTIONS ANSWERED AND SHE VERBALIZES UNDERSTANDING. CHRISTIANO REQUESTS FOLLOW-UP CALL FROM MD IN CHARGE OF HER FATHER'S CARE. WILL RELAY INFORMATION OF CONVERSATION TO MD.
[2022-05-30] MEDS: PANTOPRAZOLE 40 MG INJ VIAL IVP SCH (09:27)
[2022-05-30] MEDS: PROPOFOL 1000 MG/100 ML PREMIX 100 ML IV PRN ×2 (09:30→15:58)
[2022-05-30] MEDS: DOXAZOSIN 2 MG TAB PO SCH (09:30)
--- NOTE | 2022-05-30 10:20 | NUR ---
DR. ALVAREZ AT BEDSIDE TO ASSESS PATIENT. STATES TO WEAN FIO2 ON VENTILATOR TO 50%--WEANED PER RT. DR. ALVAREZ INFORMED THAT PATIENT'S DAUGHTER, CHRISTIANO, WOULD LIKE AN UPDATE FROM .
--- NOTE | 2022-05-30 11:30 | NUR ---
DR. GAMING AT BEDSIDE TO EVALUATE PATIENT. SPEAKS WITH PATIENT'S DAUGHTER, CHRISTIANO, VIA TELEPHONE ABOUT PATIENT'S POTENTIAL NEED FOR DIALYSIS, RISKS AND BENEFITS ASSOCIATED WITH DIALYSIS. INFORMED CONSENT OBTAINED VIA TELEPHONE WITH 2 RN WITNESS. CHRISTIANO VERBALIZES UNDERSTANDING. NEW ORDERS RECEIVED.
[2022-05-30] MEDS: DEXTROSE 5% 1,000 ML IV SCH ×2 (12:09→21:28)
[2022-05-30] MEDS ORDERED: VANCOMYCIN PER PHARMACY MC PRN (13:20)
[2022-05-30] MEDS ORDERED: VANCOMYCIN 1,500 MG in DEXTROSE 5% 500 ML IV SCH (14:00)
--- NOTE | 2022-05-30 14:30 | NUR ---
PATIENT HAS LIQUID STOOL SPECIMEN SENT FOR C. DIFF. PATIENT ISOLATION INITIATED PER PROTOCOL. DR. KAPOOR NOTIFIED.
[2022-05-30 23:44] LABS: APPEARANCE,URINE CLOUDY (CLEAR); BILIRUBIN,URINE NEGATIVE (NEGATIVE); BLOOD, URINE 2+ (NEGATIVE); COLOR,URINE YELLOW (YELLOW); LEUKOCYTE ESTERASE ,URINE 2+ (NEGATIVE); NITRITE, URINE NEGATIVE (NEGATIVE); UGLUCOSE NEGATIVE (NEGATIVE)
[2022-05-31] VITALS (27 sets, daily range): BP systolic 92–123; BP diastolic 55–72
[2022-05-31 00:09] LABS: RBC,URINE 0-5 /HPF (0-5); YEAST,URINE Many /HPF (None Seen)
[2022-05-31 00:10] LABS: CALCIUM OXALATE CRYSTALS,UR 0-5 /HPF (None Seen); COARSE GRANULAR CASTS,URINE 0-2 /LPF (None Seen)
[2022-05-31] MEDS: PIPERACILLIN/TAZOBACTAM 2.25 GM in DEXTROSE 5% 50 ML IV SCH ×4 (00:54→17:37)
[2022-05-31] MEDS: PROPOFOL 1000 MG/100 ML PREMIX 100 ML IV PRN ×3 (01:03→18:14)
[2022-05-31] MEDS: methylPREDNISolone SS 125 MG/2 ML VIAL IVP SCH ×3 (04:51→21:10)
[2022-05-31 05:29] LABS: HEMATOCRIT 26.9 % (36-52); HEMOGLOBIN 8.6 g/dL (12.0-18.0); MEAN CORPUSCULAR HEMOGLOBIN 30 pg (27-31); MEAN CORPUSCULAR HGB CONC 32 g/dL (33-37); MEAN CORPUSCULAR VOLUME 93.6 fL (80-94); PLATELET COUNT (AUTO) 160 K/uL (140-450); RED BLOOD CELL COUNT(AUTO) 2.87 MIL/uL (4.20-6.10); RED CELL DISTRIBUTION WIDTH 16.3 % (11.6-13.7)
[2022-05-31 05:35] LABS: WHITE BLOOD COUNT (AUTO) 32.7 K/uL (4.8-10.8)
[2022-05-31] MEDS: LEVOTHYROXINE 0.05 MG TAB PO SCH (06:22)
[2022-05-31 06:48] LABS: MAGNESIUM 1.9 mg/dL (1.8-2.4); PHOSPHORUS 2.6 mg/dL (2.5-4.9)
[2022-05-31 06:50] LABS: ANION GAP 15.7 (8-16); CARBON DIOXIDE 19.2 mmol/L (21-32); CHLORIDE 108 mmol/L (98-107); CREATININE 3.4 mg/dL (0.6-1.3); GLUCOSE 193 mg/dL (74-106); POTASSIUM 3.9 mmol/L (3.5-5.1); SODIUM SERUM 139 mmol/L (136-145)
--- NOTE | 2022-05-31 06:54 | NUR ---
Pt remains intubated/sedated, prop20 RASS-3. E2M4Vi, [id number]. No movements to extremities. ETT7.5 24@lip AC25 550 50% +5, 25RR 100%SpO2. L chest tube to -20cm wall suction +airleak, -50ml ss drainage. Tmax 98.8. SR on monitor, Levo@4, MAP>65. TF tolerated. X2 watery stools overnight. Oliguric, UOP 125 via fc. RIJ TLC CVC, RA midline, sites unremarkable. Safety/aspiration precautions cont. Repositioned q2hr. WBC increased to 32.7 from 25.2, texted Dr Bedoya(ID).
[2022-05-31 06:58] LABS: BASOPHILS % (MANUAL) 0 % (0-2); CORRECTED WHITE BLOOD COUNT 30.8 K/uL (4.5-11.0); EOSINOPHILS % (MANUAL) 0 % (0-4); LYMPHOCYTES % (MANUAL) 4 % (20-46); MONOCYTES % (MANUAL) 5 % (5-12)
[2022-05-31 07:11] LABS: UREA NITROGEN, BLOOD 142 mg/dL (7-18)
[2022-05-31] MEDS: DEXTROSE 5% 1,000 ML IV SCH (08:49)
[2022-05-31] MEDS ORDERED: VANCOMYCIN 1,000 MG in DEXTROSE 5% 250 ML IV SCH (09:00)
[2022-05-31] MEDS: DOXAZOSIN 2 MG TAB PO SCH (09:00)
[2022-05-31] MEDS: PANTOPRAZOLE 40 MG INJ VIAL IVP SCH (10:13)
--- NOTE | 2022-05-31 10:27 | NUR ---
DR. WOODRUFF, SURGEON CAME & SAID TO GET READY WITH SUPPLIES, GLOVES SIZE 7, ULTRASOUND-GUIDED FOR HEMODIALYSIS CATHETER INSERTION, HEPARIN TO DWELL ON 2 PORTS OF HD CATHETER, GOWNS, CAPS, AND INSERTION TRAY, AFTER CONSENTS WAS OBTAINED FROM FAMILY. Addendum: 05/31/22 at 1146 by Agency Nurse 20, STELLA RN DR. WOODRUFF CAME AT 1125 AM
--- NOTE | 2022-05-31 10:42 | NUR ---
DR. GAMING (LACQUER SIZER) CAME, PATIENT STILL ANURIC, ON LEVOPHED, IVF DEXTROSE 5% WATER AT 100 MLS/HR. ORDERED TO GET CONSENT FOR HEMODIALYSIS CATHETER PLACEMENT AND HEMODIALYSIS CONSENT. INFORM DR. WOODRUFF, SURGEON. NOTED FREE WATER FLUSH 100 MLS. Q 6 HRS. WHICH IS TO BE CONTINUED, AND DISCONTINUE IVF DEXTROSE 5% 100 MLS PER HOUR.
--- NOTE | 2022-05-31 10:42 | NUR ---
LECTURER IN MARKETING AM ROUNDS DR. GAMING CAME & NOTED PATIENT ON FREE WATER FLUSH 100 MLS. Q6HRS., ORDERED TO DISCONTINUE 5% DEXTROSE 100 MLS/HR IVF, GET CONSENT FROM FAMILY ON DIALYSIS CATHETER INSERTION AND GET CONSENT FOR HEMODIALYSIS. ONCE CONSENT SIGNED, INFORM SURGERY TO PLACE HEMODIALYSIS CATHETER.
--- NOTE | 2022-05-31 11:00 | NUR ---
DR. ALVAREZ CAME ORDERED TO DECREASE PROPOFOL TO 10 MCG/KG/MINUTE. GET CONSENT FOR HEMODIALYSIS CATHETER INSERTION. DR. ALVAREZ TALKED TO DAUGHTER ABOUT PATIENT'S STATUS.
[2022-05-31] MEDS ORDERED: VANCOMYCIN 500 MG VIAL NG SCH (12:00)
[2022-05-31] MEDS: ALBUTEROL SULFATE/IPRATROPIU 3 ML SOL IH SCH ×2 (13:01→19:05)
[2022-05-31] MEDS: VANCOMYCIN HCL 25 MG/ML SOLN PO SCH ×2 (13:07→17:39)
[2022-05-31] MEDS: NOREPINEPHRINE 16 MG in DEXTROSE 5% 250 ML IV PRN (13:08)
--- NOTE | 2022-05-31 15:29 | NUR ---
1520 transfered patient to room 7 icu.
--- NOTE | 2022-05-31 16:00 | NUR ---
PATIENT HAD LARGE AMOUNT DIARRHEA, CLEANED, PLACED FLEXI-SEAL RECTAL TUBE FOR STOOL. WAS TURNED TO RIGHT SIDE, PT. STARTED TO DESATURATE, DOWN TO 83%. BVM WITH MAXIMUM OXYGEN ON FLOWMETER, STILL DESATURATED, INFORMED RT TO COME TO BEDSIDE, PLACED ON 100% FiO2. PATIENT HAD BILATERAL PNEUMOTHORAX, LEFT RIB FRACTURES, PLEURAL EFFUSION, SUBCUTANEOUS EMPHYSEMA ON CTA SCAN & LATEST CHEST XRAY SHOWS, SUBCUTANEOUS EMPHYSEMA STILL.
--- NOTE | 2022-05-31 17:00 | NUR ---
05/31/22 RD FOLLOW UP COMPLETED. PLEASE REFER TO NUTRITION ASSESSMENT UNDER CARE ACTIVITY FOR ESTIMATED NUTRITIONAL NEEDS. 1.CONTINUE NEPRO 1.8 @40ML/HR PT TOLERATES -FWF: 100 ML Q6H OR PER MD -WILL PROVIDE 100% OF ESTIMATED NUTRIENT NEEDS 2.MONITOR FOR ABDOMINAL DISTENSION/TUBE FEEDING TOLERANCE/GASTRIC RESIDUAL 3.RD TO FOLLOW-UP IN 2-3 DAYS PATIENT IS HIGH RISK. SUSIE BARRAGAN RD
--- NOTE | 2022-05-31 19:20 | NUR ---
RECEIVED PATIENT ON BED WITH HOB ELEVATED TO 30 DEGREE, SEDATED WITH CONTINOUS PROPOFOL DRIP AT 10 MCG/KG/MIN. ORALLY INTUBATED AND VENTILATED AT 50% FI02 SO2 98%, CARDIACSCOPE SHOWS ON SINUS RHYTHM HR 81/MIN.NO ARRHYTHMIAS SEEN. ON LEVOPHED DRIP AT 4 MCG/MIN VIA CENTRAL TO RIGHT I J; INTACT. WITH CHEST TUBE ON LEFT SIDE OF THE CHEST TO CONTINUOUS WALL SUCTION, DRAINING TO SEROSANGUINOUS OUPUT. ABDOMEN IS SOFT, HYPOACTIVE BOWEL SOUNDS.ON CONTINUOUS TUBE FEEDING NEPRO AT 40 ML/HR, TOLERATED, NO RESIDUALS. WITH RUTLEDGE CATH IN SITU TO GRAVITY DRAINAGE BAG DRAINING TO CLEAR YELLOW WITH SEDIMENTS URINE OUTPUT, PATENT AND INTACT.
--- NOTE | 2022-05-31 20:00 | NUR ---
SUCTIONED DONE ORALLY AND THRU ETT, NOTED WITH GAG AND COUGH REFLEX NOTED.
--- NOTE | 2022-05-31 20:30 | NUR ---
CORI, DIALYSIS NURSE HERE TO DO HD BUT UNABLE TO CONTINUE DOING IT BECAUSE THE ACCESS LINE IS NOT GOOD ACCORDING TO HER.
--- NOTE | 2022-05-31 22:30 | NUR ---
TURNED AND REPOSITIONED PATIENT; ORAL CARE DONE WITH VAP KIT.
[2022-06-01] VITALS (26 sets, daily range): BP systolic 89–127; BP diastolic 44–68
[2022-06-01] MEDS: PIPERACILLIN/TAZOBACTAM 2.25 GM in DEXTROSE 5% 50 ML IV SCH ×4 (00:30→17:11)
[2022-06-01] MEDS: VANCOMYCIN HCL 25 MG/ML SOLN PO SCH ×4 (00:50→17:12)
[2022-06-01] MEDS ORDERED: HYDRAGUARD CREAM TP ONE (02:55)
--- NOTE | 2022-06-01 03:00 | NUR ---
MORNING BED BATH DONE; WOUND CARE DONE; KEPT CLEAN AND DRY AND COMFORTABLE.
[2022-06-01] MEDS ORDERED: HYDRAGUARD CREAM TP PRN (05:05)
[2022-06-01 05:33] LABS: CARBON DIOXIDE 18.1 mmol/L (21-32); CHLORIDE 104 mmol/L (98-107); CREATININE 3.7 mg/dL (0.6-1.3); GLUCOSE 137 mg/dL (74-106); POTASSIUM 4.1 mmol/L (3.5-5.1); SODIUM SERUM 136 mmol/L (136-145)
[2022-06-01 05:36] LABS: HEMATOCRIT 27.9 % (36-52); HEMOGLOBIN 8.8 g/dL (12.0-18.0); MEAN CORPUSCULAR HEMOGLOBIN 30 pg (27-31); MEAN CORPUSCULAR HGB CONC 32 g/dL (33-37); MEAN CORPUSCULAR VOLUME 94.9 fL (80-94); PLATELET COUNT (AUTO) 123 K/uL (140-450); RED BLOOD CELL COUNT(AUTO) 2.93 MIL/uL (4.20-6.10); RED CELL DISTRIBUTION WIDTH 16.3 % (11.6-13.7)
[2022-06-01 05:40] LABS: UREA NITROGEN, BLOOD 138 mg/dL (7-18)
[2022-06-01] MEDS: methylPREDNISolone SS 125 MG/2 ML VIAL IVP SCH ×2 (06:15→09:17)
[2022-06-01] MEDS: LEVOTHYROXINE 0.05 MG TAB PO SCH (06:46)
[2022-06-01] MEDS: ALBUTEROL SULFATE/IPRATROPIU 3 ML SOL IH SCH ×3 (07:00→18:50)
--- NOTE | 2022-06-01 07:25 | NUR ---
RECEIVED BEDSIDE REPORT FROM RYAN CONDUCTOR AND ENGINEER RN FOR CONTINUITY OF CARE. PT SEDATED, ABLE TO FOLLOW COMMANDS (SQUEEZES HAND, OPENS EYES). ETT TO VENT, ACVC FIO2 40%, VT 550, RR 25, PEEP 5. CHEST TUBE TO UPPER LEFT CHEST DRAINING LIGHT RED FLUID. SR ON MONITOR, MIDLINE TO JASPAL INFUSING NS TKO 5 ML/HR. TRIPLE LUMEN CENTRAL LINE TO RIJ INFUSING LEVO AT 4 MCG/MIN AND PROPOFOL AT 10 MCG/KG/MIN. [facility] HD CATH IN PLACE. GENERALIZED EDEMA. BOWEL SOUNDS ACTIVE. NGT TO R NARE INFUSING NEPRO TUBE FEED AT 40 ML/HR, FWF 100ML Q6. FLEXI-SEAL IN PLACE DRAINING DARK GREEN/BROWN STOOL. F/C TO GRAVITY DRAINING CLEAR YELLOW URINE. GENERALIZED WEAKNESS. BED IN LOWEST POSITION, CALL LIGHT WITHIN REACH.
[2022-06-01 07:33] LABS: WHITE BLOOD COUNT (AUTO) 39.7 K/uL (4.8-10.8)
[2022-06-01 07:34] LABS: LYMPHOCYTES % (MANUAL) 4 % (20-46); MONOCYTES % (MANUAL) 4 % (5-12)
--- NOTE | 2022-06-01 07:39 | NUR ---
SEEN AND EXAMINED BY DR. TAYLOR. ORDERS RECEIVED. Addendum: 06/01/22 at 1301 by Graciela Mohan RN [id number]
--- NOTE | 2022-06-01 09:05 | NUR ---
WOUND CARE EVALUATION NOTE: SKIN ASSESSMENT DONE WITH THIS 71 Y/O PT ADMITTED WITH INITIAL DX SHORTNESS OF BREATH, HYPERCALCEMIA, RECENT UTI. PAST MEDICAL HX INCLUDES HX CARDIAC DISORDERS (A. FIB). PT ADMITTED FROM SNF WITH PRESSURE INJURIES. ALL ABOVE INFORMATION OBTAINED FROM ADMISSION H&P AND CHART REVIEW. PT IS INTUBATED, TF, SKIN IS WARM AND DRY, BILATERAL UPPER AND LOWER EXTREMITIES +3 EDEMA. LEFT HAND ECCHYMOSIS. DORSAL PEDAL PULSES PRESENT AND DIMINISHES. CAPILLARY REFILLED >3 SEC. X 10 TOES. F/C PATENT WITH SMALL AMOUNT SANDRA COLOR URINE OUT PUT OBSERVED. FLEXI SEAL PATENT WATERY BROWN STOOL OUTPUT OBSERVED. PT. ON LEVOPHED DRIP FOR MAINTENANCE BP. ISHMAEL SCALE BETWEEN 9-11 HI RISK FOR DEVELOP UN-AVOIDABLE PRESSURE INJURY. PLAN OF CARE DISCUSSED WITH PRIMARY RN. POC DISCUSSED WITH DR. TAYLOR. COMORBIDITIES RELATED TO DELAY WOUND HEALING, FURTHER SKIN BREAKS ADVANCE AGE, INFECTION, KIDNEY FAILURE ON HD, ACUTE HYPOXEMIC DECREASE TISSUE PERFUSION LEAD TO TISSUE ISCHEMIA, DECREASE MOBILITY AND FUNCTIONAL ABILITIES, AND HOB ELEVATED THE MAJORITY OF TIMES DUE TO MEDICAL REASONS. INTEGUMENTARY: -LIPS AND ORAL MUCOSA DRY AND CLEAN. SKIN INTACT. -ABDOMEN DISTENDED, SOFT, TRUNK OF BODY WITH GENERALIZES EDEMA -UPPER ARMS MULTIPLE ECCHYMOSIS -MOISTURE ASSOCIATED DERMATITIS (MAD) TO: B/L GROINS TO SCROTAL, SKIN REDNESS -PRESSURE INJURY UN-STAGEABLE, COCCYX 1X1CM, 100% BROWN TISSUE, MOIST, NO ODOR, LINNEA-WOUND SKIN EXTENDED TO SACRAL FULL THICKNESS SKIN LOSS PRESSURE INJURY STAGE 3 WITH SURROUNDING NON-BLANCHABLE REDNESS INDICATED FURTHER DAMAGE. -SACRAL PRESSURE INJURY STAGE 3, 9X12X0.3CM,MEASUREMENT INCLUDING COCCYX 1X1CM BROWN ISSUE AND SACRAL WOUND BED RED GRANULATION TISSUE,AREA MOIST, NO ODOR, LINNEA WOUND SKIN MOIST IRREGULAR SHAPE, NON-BLANCHABLE REDNESS, FURTHER DAMAGE INDICATED -BLANCHABLE REDNESS LEFT AND RIGHT HEELS, SKIN MUSHY AND INTACT, HEEL PROTECTORS IN PLACE AND OFFLOADING WITH PILLOWS RECOMMENDATIONS: -APPLY THIN LAYER OF HYDRA GUARD TO EXTREMITIES AND TRUNK OF BODY, R/L GROINS EXTENDED TO SCROTAL AREA BID AND PRN IF SOILING -CLEANSE SACRALCOCCYX WITH NS, PAT DRY, APPLY THERAHONEY GEL WITH ADAPTIC DRESSING, COVER WITH DRY DRESSING QD AND PRN IF SOILING -POSITIONING: TURN AND REPOSITION PATIENT Q 2H OR SOONER USE PILLOWS TO KEEP BONY PROMINENCES FROM DIRECT CONTACT WITH SURFACES USE REPOSITIONING WEDGES TO PROVIDE 30-DEGREE ANGLE FOR SIDE LYING POSITIONS OFFLOADING OR FOAM DRESSING TO ALL TUBING TO PREVENT MEDICAL DEVICES RELATED PRESSURE INJURY -RE-EVALUATING AND MANAGING INCONTINENCE MONITOR SKIN CONDITION DURING POSITION CHANGE DO NOT MASSAGE REDNESS, BONY PROMINENCES, DO NOT USE DONUT-TYPE DEVICES FREQUENT LINNEA-CARE AND PROVIDE BARRIER CREAMS PRN IF SOILING MOISTURE CONTROL BY OFFER BED WADSWORTH/URINAL /ABSORBENT PAD TO WICK AND HOLD MOISTURE. KEEP SKIN DRY AND PROTECT FROM FRICTION -MANAGE FRICTION/SHEAR/MOBILITY KEEP HOB AT THE LOWEST LEVEL OF ELEVATION NO MORE THAN 30 DEGREES UNLESS OTHERWISE CONTRAINDICATED USE LIFT SHEET OR TRANSFER DEVICE TO MOVE PATIENT AND PREVENT LATERAL SHEER. CONSIDER TRAPEZE IF APPROPRIATE PROTECT HEELS, ELBOWS BONY PROMENANCES WITH SKIN BERRIES OR FOAM DRESSING IF EXPOSED TO FRICTION OFFLOAD BILATERAL HEELS BY PLACING PILLOWS UNDER CALVES AT ALL TIMES, UNLESS OTHERWISE CONTRAINDICATED -PRESSURE REDISTRIBUTION SURFACE THERAPY NÉSTOR ISOFLEX ALBERTO MATTRESS -NUTRITION: PLEASE FOLLOW RD RECOMMENDATIONS AND OFFER NUTRITION SUPPLEMENTS IF ORDERED.
[2022-06-01] MEDS: PANTOPRAZOLE 40 MG INJ VIAL IVP SCH (09:15)
[2022-06-01] MEDS: DOXAZOSIN 2 MG TAB PO SCH (09:16)
--- NOTE | 2022-06-01 11:10 | NUR ---
SEEN AND EXAMINED BY DR. LOPEZ. NO NEW ORDERS.
[2022-06-01] MEDS: PROPOFOL 1000 MG/100 ML PREMIX 100 ML IV PRN ×2 (11:40→21:18)
--- NOTE | 2022-06-01 12:22 | NUR ---
SEEN AND EXAMINED BY DR. GARCES. NO NEW ORDERS.
--- NOTE | 2022-06-01 12:35 | NUR ---
NGT FOUND TO BE COILED IN MOUTH, PAUSED FEEDING, INSTILLED AIR AND AUSCULTATED STOMACH. UNABLE TO HEAR ANYTHING. PULLED BACK ON NGT AND ADVANCED AT SAME MEASUREMENT. INSTILLED AIR AGAIN AND HEARD "WHOOSH" IN STOMACH. ORDERED STAT CXR.
--- NOTE | 2022-06-01 12:55 | NUR ---
XRAY AT BEDSIDE
[2022-06-01] MEDS: HYDRAGUARD CREAM TP SCH (13:00)
[2022-06-01] MEDS: THERAHONEY GEL 42.5 GM TP SCH (13:00)
--- NOTE | 2022-06-01 13:02 | NUR ---
SEEN AND EXAMINED BY DR. ALVAREZ, WHO CALLED AND SPOKE TO FAMILY. NO NEW ORDERS.
--- NOTE | 2022-06-01 14:00 | NUR ---
LATEST CXR SHOWS NGT LOCATED IN STOMACH, RESUMED FEEDING.
[2022-06-01] MEDS: FLUCONAZOLE 200 MG/NS PREMIX 100 ML IV SCH (18:18)
--- NOTE | 2022-06-01 19:15 | NUR ---
DR. WOODRUFF MADE ROUNDS, CHECKED THE NON FUNCTIONAL LEFT JUGULAR THADDEUS CATHETER AND ORDERED TO CONTACT THE FAMILY FOR CONSENT TO REPLACE THE THADDEUS CATHETER. CALLED CHRISTIANO (DAUGHTER) AND DR. WOODRUFF TALKED TO THE DAUGHTER OVER THE PHONE. CHRISTIANO DID NOT GIVE CONSENT TO INSERT A NEW THADDEUS CATHETER AND THE FAMILY WILL DECIDE UNTIL WEDNESDAY IF THEY WILL CHANGE THE CODE STATUS OR IF THEY WILL GIVE CONSENT TO REPLACE THE HEMODIALYSIS CATHETER, PER DR. WOODRUFF. WILL ENDORSE TO THE NEXT SHIFT.
--- NOTE | 2022-06-01 19:18 | NUR ---
ENDORSED BEDSIDE REPORT TO KELIN DOUGLAS FOR CONTINUITY OF CARE.
--- NOTE | 2022-06-01 19:24 | NUR ---
RECEIVED REPORT FROM STELLA SALAZAR. PT. AOX0 AND CONT. ON ETT WITH VENT SETTING RATE 25, FIO2 32%, TV 550, PEEP 5. ON SINUS RHYTHM WITH HR GREATER THAN 80. IV TO RIGHT UPPER ARM MIDLINE RUNNING NS TKO. IV TRIPLE LUMEN CENTRAL LINE CATHETER TO RIGHT JUGULAR INFUSING PROPOFOL DRIP AT 15 MCG/KG/MIN AND LEVOPHED DRIP 10 MCG/MIN. HEMODIALYSIS THADDEUS CATHETER TO LEFT JUGULAR NON FUNCTIONAL. PER REPORT PT. SUPPOSED TO HAVE INITIAL DIALYSIS, BUT SINCE CATHETER NOT WORKING, IT'S BEEN HOLD UNTIL FURTHER ORDER. SKIN NOT INTACT, PLEASE SEE WOUND DOCUMENTATION. THE LEFT UPPER MIDAXILLARY CHEST TUBE ON SUCTION AND WORKING WELL. RUTLEDGE CATHETER ON GRAVITY WITH YELLOW CLOUDY COLOR WITH SEDIMENTS. ON FLEXI-SEAL. ALL EXTREMITIES WITH SEVERE GENERALIZED WEAKNESS. ALL EXTREMITIES ELEVATED WITH PILLOW.REPOSITIONED AND PLACED IN COMFORTABLE POSITION. PROVIDED SAFE AND QUIET ENVIRONMENT. NO S/S OF PAIN NOTED. WILL CONT. TO MONITOR.
[2022-06-01] MEDS: metroNIDAZOLE 500 MG/NS PREMIX 100 ML IV SCH (20:57)
[2022-06-02] VITALS (29 sets, daily range): BP systolic 92–122; BP diastolic 43–64
[2022-06-02] MEDS: PIPERACILLIN/TAZOBACTAM 2.25 GM in DEXTROSE 5% 50 ML IV SCH ×4 (00:06→17:21)
[2022-06-02] MEDS: VANCOMYCIN HCL 25 MG/ML SOLN PO SCH ×4 (00:15→17:21)
[2022-06-02] MEDS: HYDRAGUARD CREAM TP SCH ×2 (01:18→12:21)
[2022-06-02] MEDS ORDERED: NOREPINEPHRINE 4 MG/4 ML VIAL IV ONE (02:33)
[2022-06-02] MEDS: NOREPINEPHRINE 16 MG in DEXTROSE 5% 250 ML IV PRN (02:45)
[2022-06-02] MEDS: metroNIDAZOLE 500 MG/NS PREMIX 100 ML IV SCH ×3 (05:09→20:57)
[2022-06-02] MEDS: LEVOTHYROXINE 0.05 MG TAB PO SCH (05:44)
[2022-06-02 06:33] LABS: BASOPHILS % (AUTO) 0.1 % (0.0-2.0); HEMATOCRIT 25.4 % (36-52); HEMOGLOBIN 8.3 g/dL (12.0-18.0); LYMPHOCYTES # (AUTO) 0.3 K/uL (2.0-11.5); LYMPHOCYTES % (AUTO) 1.1 % (20.5-51.1); MEAN CORPUSCULAR HEMOGLOBIN 30 pg (27-31); MEAN CORPUSCULAR HGB CONC 33 g/dL (33-37); MEAN CORPUSCULAR VOLUME 92.9 fL (80-94); MONOCYTES # (AUTO) 1.1 K/uL (0.8-1.0); MONOCYTES % (AUTO) 3.7 % (1.7-9.3); NEUTROPHILS % (AUTO) 95.1 % (42.2-75.2); PLATELET COUNT (AUTO) 96 K/uL (140-450); RED BLOOD CELL COUNT(AUTO) 2.74 MIL/uL (4.20-6.10)
[2022-06-02 06:46] LABS: WHITE BLOOD COUNT (AUTO) 28.5 K/uL (4.8-10.8)
--- NOTE | 2022-06-02 06:46 | NUR ---
COURTNEY FROM THE LAB CALLED AND REPORTED WBC 28.5. WILL REPORT TO MD AND WILL ENDORSE TO THE NEXT SHIFT.
--- NOTE | 2022-06-02 06:49 | NUR ---
TEXTED DR. TAYLOR AND DR. TAYLOR RESPONDED THAT DR. PENA IS ON TODAY. TEXTED DR. PENA,REPORTED WBC 28.5. WILL WAIT FOR RESPONSE. WILL ENDORSE TO THE NEXT SHIFT.
[2022-06-02 06:50] LABS: ANION GAP 20.4 (8-16); CARBON DIOXIDE 16.8 mmol/L (21-32); CHLORIDE 101 mmol/L (98-107); GLUCOSE 124 mg/dL (74-106); POTASSIUM 4.2 mmol/L (3.5-5.1); SODIUM SERUM 134 mmol/L (136-145)
--- NOTE | 2022-06-02 06:59 | NUR ---
DR. PENA RESPONDED BUT THE TEXT NOT CLEAR OF WHAT HE WANTS. TEXTED DR. PENA AGAIN AND NO RESPONSE YET. WILL ENDORSE TO THE NEXT SHIFT.
--- NOTE | 2022-06-02 07:00 | NUR ---
RECEIVED PT ON ACVC TV550,RR25,+5,32% FIO2. WHEELS ARE LOCKED AND VENT PLUGGED INTO RED OUTLET, ALARMS ARE SET AND AUDIBLE. AMBUBAG AT BEDSIDE.
--- NOTE | 2022-06-02 07:02 | NUR ---
DR. PENA TEXTED BACK, TO MONITOR THE PT. WILL ENDORSE TO THE NEXT SHIFT.
[2022-06-02] MEDS: ALBUTEROL SULFATE/IPRATROPIU 3 ML SOL IH SCH ×2 (07:08→19:17)
--- NOTE | 2022-06-02 07:15 | NUR ---
RECEIVED BEDSIDE REPORT FROM KELIN NGO RN FOR CONTINUITY OF CARE. PT LYING IN THE BED. SEDATED RASS -3. ETT TO VENT ACVC FIO2 32% VT 550 R 25 PEEP 5. SR/SB ON BEDSIDE MONITOR, HR 58. RIJ CENTRAL LINE IN PLACE INFUSING PROPOFOL AT 15 MCG/KG/MIN, AND LEVOPHED AT 10 MCG/MIN. JASPAL MIDLINE IN PLACE INFUSING NS TKO AT 5 ML/H. [facility] DIALYSIS CATHETER IN PLACE, NOT FUNCTIONING. L MIDAXILLARY CHEST TUBE IN PLACE, TO LOW CONT SUCTION. MD AWARE. FLEXISEAL IN PLACE, MARKED AT 300 ML. F/C IN PLACE, DRAINING CLOUDY YELLOW W SEDIMENT. GENERALIZED WEAKNESS TO BUE BLE. SKIN NOT INTACT, SEE WOUND ASSESSMENT. ON CONTACT BLEACH ISOLATION FOR CDIFF POSITIVE. CALL LIGHT WITHIN REACH. SAFETY PRECAUTIONS MET. INITIAL ASSESSMENT COMPLETE, WILL CONTINUE TO CLOSELY MONITOR.
--- NOTE | 2022-06-02 07:20 | NUR ---
REPORT GIVEN TO STELLA LAO FOR CONTINUITY OF CARE.
[2022-06-02 07:33] LABS: UREA NITROGEN, BLOOD 150 mg/dL (7-18)
[2022-06-02] MEDS: PROPOFOL 1000 MG/100 ML PREMIX 100 ML IV PRN (08:00)
[2022-06-02] MEDS: PANTOPRAZOLE 40 MG INJ VIAL IVP SCH (08:39)
[2022-06-02] MEDS: methylPREDNISolone SS 125 MG/2 ML VIAL IVP SCH (08:40)
[2022-06-02] MEDS: DOXAZOSIN 2 MG TAB PO SCH (08:40)
--- NOTE | 2022-06-02 09:18 | NUR ---
DR PENA ROUNDING AT BEDSIDE. NO NEW ORDERS.
--- NOTE | 2022-06-02 09:20 | NUR ---
DR ANTONIO ORTIZ AT BEDSIDE. MINIMAL DRAINAGE FROM CHEST TUBE LAST NIGHT, 5 ML, DR ORDERED TO SWITCH TO WATER SEAL. ORDERED FENTANYL AND VERSED DRIPS FOR SEDATION RASS -3, AND TO WEAN OFF OF PROPOFOL. PROVIDED DR WITH PT DAUGHTER CONTACT INFORMATION, CHRISTIANO [phone]. SAID SHE WILL CALL HER AND DISCUSS PT CONDITION, PROGNOSIS, AND PLAN OF CARE.
[2022-06-02] MEDS: fentaNYL citrate 1 MG in NACL 0.9% 80 ML IV PRN ×2 (10:55→19:00)
[2022-06-02] MEDS: MIDAZOLAM MDV 100 MG in NACL 0.9% 80 ML IV PRN (10:57)
--- NOTE | 2022-06-02 11:20 | NUR ---
PT CLEANED AND REPOSITIONED. CHANGED SACRAL DRESSING. PT TOLERATED WELL. WILL CONTINUE TO CLOSELY MONITOR.
[2022-06-02 12:07] LABS: HEPATITIS A ANTIBODY IGM Negative (Negative); HEPATITIS B CORE AB TOTAL Negative (Negative); HEPATITIS B SURFACE ANTIBODY Non Reactive (.); HEPATITIS B SURFACE ANTIGEN Negative (Negative)
[2022-06-02] MEDS: THERAHONEY GEL 42.5 GM TP SCH (12:21)
--- NOTE | 2022-06-02 13:30 | NUR ---
PT RESTING, VSS. NO ACUTE DISTRESS AT THIS TIME.
--- NOTE | 2022-06-02 14:30 | NUR ---
PT REPOSITIONED. PT TOLERATED WELL. WILL CONTINUE TO CLOSELY MONITOR.
--- NOTE | 2022-06-02 15:30 | NUR ---
PT RASS -3, VSS. FOLLOWS SIMPLE COMMANDS. NO ACUTE DISTRESS. WILL CONTINUE TO CLOSELY MONITOR.
--- NOTE | 2022-06-02 17:00 | NUR ---
PT REPOSITIONED. TOLERATED WELL. WILL CONTINUE TO CLOSELY MONITOR.
--- NOTE | 2022-06-02 19:05 | NUR ---
ENDORSED BEDSIDE REPORT TO KELIN NGO RN FOR CONTINUITY OF CARE. VSS. PT IN NO ACUTE DISTRESS. ALL QUESTIONS ANSWERED.
--- NOTE | 2022-06-02 19:24 | NUR ---
RECEIVED REPORT FROM DAY SHIFT, STELLA LAO. PT. REMAINS AOX0 AND CONT. ON ETT WITH VENT SETTING RATE 25, FIO2 32%, TV 550, PEEP 5. ON SINUS RHYTHM WITH HR GREATER THAN 70S. IV TO RIGHT UPPER ARM MIDLINE RUNNING NS TKO. IV TRIPLE LUMEN CENTRAL LINE CATHETER TO RIGHT JUGULAR INFUSING FENTANYL DRIP 1 MCG/KG/HR, VERSED DRIP 1 MG/HR AND LEVOPHED DRIP 10 MCG/MIN. HEMODIALYSIS THADDEUS CATHETER TO LEFT JUGULAR NON FUNCTIONAL. HEMODIALYSIS STILL ON HOLD DUE TO NON FUNCTIONAL THADDEUS CATHETER AND NEEDS TO BE REPLACED. [place] AWARE, WAITING FOR THE FAMILY TO GIVE CONSENT FOR REPLACEMENT OF THE NEW THADDEUS CATHETER. PER DAY SHIFT RN, DR. ALVAREZ MADE ROUNDS AND STATED THAT SHE WILL CALL THE FAMILY FOR THE CODE STATUS. NO WORDS YET FROM DR. ALVAREZ IF WHAT FAMILY DECIDED TO DO WITH PT. CODE STATUS. SKIN NOT INTACT, PLEASE SEE WOUND DOCUMENTATION. THE LEFT UPPER MIDAXILLARY CHEST TUBE ON WATERSEAL. RUTLEDGE CATHETER ON GRAVITY WITH YELLOW CLOUDY COLOR URINE WITH SEDIMENTS. ON FLEXI-SEAL. PT. CONT. ON CONTACT ISOLATION, C-DIFF (+). ALL NECESSARY PROPER PPE WILL BE USED. ALL EXTREMITIES, WITH SEVERE GENERALIZED WEAKNESS. ALL EXTREMITIES ELEVATED WITH PILLOW.REPOSITIONED AND PLACED IN COMFORTABLE POSITION. PROVIDED SAFE AND QUIET ENVIRONMENT. NO S/S OF PAIN NOTED. WILL CONT. TO MONITOR.
[2022-06-02] MEDS: CITRIC ACID/SODIUM CITRATE 30 ML UDC PO SCH (20:57)
--- NOTE | 2022-06-02 21:24 | NUR ---
RIGHT INTERNAL JUGULAR TRIPLE LUMEN CENTRAL LINE DRESSING CHANGED. SITE, DRY, PATENT AND INTACT. NO S/S OF INFECTION. NO S/S OF PAIN.
[2022-06-03] VITALS (29 sets, daily range): BP systolic 91–140; BP diastolic 40–77
[2022-06-03] MEDS: PIPERACILLIN/TAZOBACTAM 2.25 GM in DEXTROSE 5% 50 ML IV SCH ×4 (00:10→18:03)
[2022-06-03] MEDS: HYDRAGUARD CREAM TP SCH ×2 (01:13→12:13)
[2022-06-03] MEDS: fentaNYL citrate 1 MG in NACL 0.9% 80 ML IV PRN ×2 (04:17→15:24)
--- NOTE | 2022-06-03 04:44 | NUR ---
LAB CAME AND DRAWN BLOOD.
[2022-06-03] MEDS: metroNIDAZOLE 500 MG/NS PREMIX 100 ML IV SCH ×3 (04:55→21:22)
[2022-06-03] MEDS ORDERED: NOREPINEPHRINE 4 MG/4 ML VIAL IV ONE (05:28)
[2022-06-03] MEDS: VANCOMYCIN HCL 25 MG/ML SOLN PO SCH ×4 (06:00→18:02)
[2022-06-03] MEDS: LEVOTHYROXINE 0.05 MG TAB PO SCH (06:03)
[2022-06-03 06:21] LABS: HEMATOCRIT 24.2 % (36-52); HEMOGLOBIN 7.9 g/dL (12.0-18.0); LYMPHOCYTES # (AUTO) 0.3 K/uL (2.0-11.5); LYMPHOCYTES % (AUTO) 1.2 % (20.5-51.1); MEAN CORPUSCULAR HEMOGLOBIN 30 pg (27-31); MEAN CORPUSCULAR HGB CONC 33 g/dL (33-37); MEAN CORPUSCULAR VOLUME 92.3 fL (80-94); MONOCYTES # (AUTO) 1.1 K/uL (0.8-1.0); NEUTROPHILS # (AUTO) 25.3 K/uL (1.8-7.7); NEUTROPHILS % (AUTO) 94.8 % (42.2-75.2); PLATELET COUNT (AUTO) 80 K/uL (140-450); RED BLOOD CELL COUNT(AUTO) 2.62 MIL/uL (4.20-6.10); RED CELL DISTRIBUTION WIDTH 16.1 % (11.6-13.7)
[2022-06-03 06:30] LABS: ANION GAP 21.2 (8-16); CARBON DIOXIDE 16.6 mmol/L (21-32); CHLORIDE 101 mmol/L (98-107); GLUCOSE 123 mg/dL (74-106); POTASSIUM 3.8 mmol/L (3.5-5.1); SODIUM SERUM 135 mmol/L (136-145)
[2022-06-03 07:01] LABS: UREA NITROGEN, BLOOD 149 mg/dL (7-18)
[2022-06-03 07:02] LABS: CREATININE 4.1 mg/dL (0.6-1.3)
--- NOTE | 2022-06-03 07:05 | NUR ---
RECEIVED BEDSIDE REPORT FROM KELIN OPERATIONS FORESTER RN, FOR CONTINUITY OF CARE. PT A&OX0, SEDATED. ETT TO VENT, ACVC FIO2 30%, VT 550, RR 25, PEEP 5. CHEST TUBE TO LEFT UPPER MID AXILLARY CHEST, WATER SEAL. SR ON MONITOR. MIDLINE TO JASPAL INFUSING NS TKO. TRIPLE LUMEN CENTRAL LINE TO RIJ INFUSING LEVO AT 10 MCG/MIN, VERSED AT 1 MG/HR, AND FENTANYL AT 1 MCG/KG/HR. HD CATH TO [facility], NONFUNCTIONING. GENERALIZED EDEMA. NGT TO L NARE INFUSING NEPRO FEEDING AT 40 ML/HR, FWF 100 ML Q6H. BOWEL SOUNDS ACTIVE, FLEXI SEAL IN PLACE MARKED AT 500 ML/HR. F/C TO GRAVITY. GENERALIZED WEAKNESS. CONTACT PRECAUTION FOR CDIFF. BED IN LOWEST POSITION.
[2022-06-03] MEDS: ALBUTEROL SULFATE/IPRATROPIU 3 ML SOL IH SCH ×3 (07:15→18:52)
--- NOTE | 2022-06-03 07:15 | NUR ---
RECEIVED PT FROM [facility] RT, PT SEEN IN NO RESPIRATORY DISTRESS, PT SEEN ON VENTILATOR SETTINGS AC/VC 550 TIDAL VOLUME, RATE 25, PEEP 5, FiO2 30%. PT IS ACHIEVING GOOD VOLUMES AND SATURATING WELL AND TREATMENT GIVEN WITH NO COMPLICATIONS. PT'S BED WHEELS AND VENT WHEELS LOCKED, AMBU BAG IN ROOM AND VENTILATOR PLUGGED INTO RED OUTLET. WILL CONTINUE TO MONITOR PT.
[2022-06-03 07:18] LABS: WHITE BLOOD COUNT (AUTO) 26.7 K/uL (4.8-10.8)
--- NOTE | 2022-06-03 08:25 | NUR ---
SEEN AND EXAMINED BY DR. PENA. NO NEW ORDERS.
[2022-06-03] MEDS: methylPREDNISolone SS 125 MG/2 ML VIAL IVP SCH (08:52)
[2022-06-03] MEDS: PANTOPRAZOLE 40 MG INJ VIAL IVP SCH (08:52)
[2022-06-03] MEDS: CITRIC ACID/SODIUM CITRATE 30 ML UDC PO SCH ×2 (08:53→21:23)
[2022-06-03] MEDS: DOXAZOSIN 2 MG TAB PO SCH (08:54)
--- NOTE | 2022-06-03 09:40 | NUR ---
SEEN AND EXAMINED BY DR. LOPEZ. NO NEW ORDERS.
--- NOTE | 2022-06-03 12:00 | NUR ---
SEEN AND EXAMINED BY DR. ALVAREZ, WHO SPOKE WITH CHRISTIANO VIA TELEPHONE. FAMILY PLANS TO VISIT TOMORROW TO DISCUSS CODE STATUS.
[2022-06-03] MEDS: THERAHONEY GEL 42.5 GM TP SCH (12:13)
--- NOTE | 2022-06-03 13:02 | NUR ---
WOUND CARE RENDERED. BERNABE TO SACRAL WOUND AND APPLIED CLEAN SACRAL OPTIFOAM DRESSING. APPLIED HYDRAGUARD TO GROIN SKIN FOLDS. ADDED DRAW SHEET. CLEANED, TURNED AND REPOSITIONED WITH SHILO DOUGLAS. PT TOLERATED TURNING.
--- NOTE | 2022-06-03 13:39 | NUR ---
SEDATION VACATION RENDERED. PT ABLE TO FOLLOW COMMANDS, ABLE TO SQUEEZE HAND ON RIGHT SIDE ONLY. OPENS EYES TO VOICE. GENERALIZED WEAKNESS.
--- NOTE | 2022-06-03 14:35 | NUR ---
SEEN AND EXAMINED BY DR. WOODRUFF. NO NEW ORDERS.
--- NOTE | 2022-06-03 14:54 | NUR ---
06/03/22 RD FOLLOW UP COMPLETED PLEASE REFER TO NUTRITION ASSESSMENT UNDER CARE ACTIVITY FOR ESTIMATED NUTRITIONAL NEEDS. 1. CONTINUE NEPRO 1.8 @40ML/HR WITH FWF: 100 ML Q6H OR PER MD -WILL PROVIDE 100% OF ESTIMATED NUTRIENT NEEDS 2. RD RECOMMENDS PROSOURCE BID FOR WOUND HEALING. 3. WILL MONITOR TUBE FEEDING TOLERANCE AND GASTRIC RESIDUAL. 4. RD TO FOLLOW-UP 2-3 DAYS, HIGH RISK REVIEWED BY CAROLINE VALENCIA RD
[2022-06-03] MEDS: FLUCONAZOLE 200 MG/NS PREMIX 100 ML IV SCH (17:07)
--- NOTE | 2022-06-03 18:36 | NUR ---
CVC DRESSING FOUND TO BE SOILED, CHANGED DRESSING WITH STERILE TECHNIQUE.
--- NOTE | 2022-06-03 19:02 | NUR ---
SEEN AND EXAMINED BY DR. JONES. NO NEW ORDERS.
--- NOTE | 2022-06-03 19:16 | NUR ---
ENDORSED BEDSIDE REPORT TO BRACEY RN FOR CONTINUITY OF CARE.
--- NOTE | 2022-06-03 19:33 | NUR ---
RECEIVED REPORT FROM AM SHIFT STELLA SALAZAR. PT SEDATED RASS -3. VENT SETTINGS ACVS FI02 30 VT 550 R 25 PEEP 5. CHEST TUBE INTACT TO WATER SEAL NO SUCTION. NGT TUBE FEEDING TO LEFT NARE. NEPRO 40 ML/HR 100ML Q6HR FLUSH. FLEXISEAL IN PLACE. RUTLEDGE CATHETER INTACT AND DRAINING WELL. SINUS FAUZIA TO BEDSIDE MONITOR. MIDLINE IV ACCESS AND RIGHT IJ CENTRAL LINE. NON FUNCTIONAL LEFT IJ THADDEUS CATHETER. REPLACEMENT TO BE DISCUSSED IN THE MORNING WHEN FAMILY COMES RECEIVED FROM REPORT. FENTANYL 1 MCG/KG/HR. VERCED 1MG/HR. LEVO 6MCG/MIN. NS TKO. DRESSING IN PLACE TO OPEN WOUND ON SACRUM AREA.
--- NOTE | 2022-06-03 22:56 | NUR ---
PT REPOSITIONED. PROVIDED ORAL CARE.
[2022-06-04] VITALS (27 sets, daily range): BP systolic 94–127; BP diastolic 43–61
--- NOTE | 2022-06-04 | NUR ---
ALL PM MEDS GIVEN. FLACC 0.
[2022-06-04] MEDS: fentaNYL citrate 1 MG in NACL 0.9% 80 ML IV PRN ×3 (00:50→19:41)
[2022-06-04] MEDS: HYDRAGUARD CREAM TP SCH ×2 (01:17→12:30)
--- NOTE | 2022-06-04 02:30 | NUR ---
PT SUCTIONED TO TAKE OUT SECRETIONS.
--- NOTE | 2022-06-04 04:00 | NUR ---
PT TEMP 98. CLEANED AND REPOSITIONED.
[2022-06-04] MEDS: metroNIDAZOLE 500 MG/NS PREMIX 100 ML IV SCH ×3 (05:15→20:23)
[2022-06-04] MEDS: PIPERACILLIN/TAZOBACTAM 2.25 GM in DEXTROSE 5% 50 ML IV SCH ×5 (06:31→17:01)
[2022-06-04] MEDS: LEVOTHYROXINE 0.05 MG TAB PO SCH (06:32)
[2022-06-04] MEDS: VANCOMYCIN HCL 25 MG/ML SOLN PO SCH ×4 (06:32→17:08)
[2022-06-04] MEDS: ALBUTEROL SULFATE/IPRATROPIU 3 ML SOL IH SCH ×3 (07:00→19:23)
--- NOTE | 2022-06-04 07:00 | NUR ---
PT RECEIVED FROM [facility] RT. ARRIVED AT BEDSIDE WITH NURSES GIVING REPORT, PT SEEN IN NO RESPIRATORY DISTRESS, PT SEEN ON STATED SETTINGS, A/C V/C 25RR, 550VT, +5, 30%, ALSO INCREASED FLOW FROM 50 TO 53 TO HELP PREVENT AUTO PEEP. PT TOLERATED TX WELL AND AMBU BAG AT BEDSIDE, VENT ALARMS ARE ON AND AUDIBLE, VENT WHEELS LOCKED AND VENT PLUGGED INTO RED OUTLET, PT BED WHEELS LOCKED AND WILL CONTINUE TO MONITOR.
[2022-06-04 07:16] LABS: BASOPHILS # (AUTO) 0.1 K/uL (0.00-0.22); BASOPHILS % (AUTO) 0.6 % (0.0-2.0); HEMATOCRIT 24.7 % (36-52); LYMPHOCYTES # (AUTO) 0.3 K/uL (2.0-11.5); LYMPHOCYTES % (AUTO) 1.7 % (20.5-51.1); MEAN CORPUSCULAR HEMOGLOBIN 30 pg (27-31); MEAN CORPUSCULAR HGB CONC 32 g/dL (33-37); MEAN CORPUSCULAR VOLUME 92.9 fL (80-94); MONOCYTES # (AUTO) 0.7 K/uL (0.8-1.0); MONOCYTES % (AUTO) 3.5 % (1.7-9.3); NEUTROPHILS # (AUTO) 19.3 K/uL (1.8-7.7); NEUTROPHILS % (AUTO) 94.2 % (42.2-75.2); PLATELET COUNT (AUTO) 72 K/uL (140-450); RED BLOOD CELL COUNT(AUTO) 2.66 MIL/uL (4.20-6.10); RED CELL DISTRIBUTION WIDTH 16.3 % (11.6-13.7); WHITE BLOOD COUNT (AUTO) 20.5 K/uL (4.8-10.8)
--- NOTE | 2022-06-04 07:17 | NUR ---
REPORT GIVEN TO AM SHIFT STELLA KOROMA.
--- NOTE | 2022-06-04 07:35 | NUR ---
Received pt in bed with eyes closed, RASS-3. ETT to vent settings AC/VC TV 550 rate 25 PEEP 5 FiO2@30%. Sinus rhythm on monitor. Chest tube to left mid chest in place to low continuous suction. NG-tube on left nare intact infusing Nepro @40ml/hr with free water flush 100ml Q6hr. Cheney catheter intact and draining to bed side drainage. Rectal tube in place. Central line on right IJ intact and patent infusing Levophed @ 6mcg/min, Versed @1mg/hr, and Fentanyl @1mcg/kg/hr. Midline, single lumen on right upper arm intact and patent infusing NS@TKO. Dialysis access on left IJ intact and non functioning. Safety precautions in place. Continue contact precautions for C.Diff.
[2022-06-04 07:48] LABS: ANION GAP 21.7 (8-16); CARBON DIOXIDE 16.7 mmol/L (21-32); CHLORIDE 102 mmol/L (98-107); CREATININE 3.9 mg/dL (0.6-1.3); GLUCOSE 119 mg/dL (74-106); POTASSIUM 3.4 mmol/L (3.5-5.1); SODIUM SERUM 137 mmol/L (136-145)
[2022-06-04 07:53] LABS: UREA NITROGEN, BLOOD 152 mg/dL (7-18)
--- NOTE | 2022-06-04 07:58 | NUR ---
Reported BUN and creatinine to Dr. Snyder. No new orders at this time. Dr. Snyder at bedside examining pt.
[2022-06-04] MEDS: PANTOPRAZOLE 40 MG INJ VIAL IVP SCH (08:07)
[2022-06-04] MEDS: methylPREDNISolone SS 125 MG/2 ML VIAL IVP SCH (08:07)
[2022-06-04] MEDS: CITRIC ACID/SODIUM CITRATE 30 ML UDC PO SCH ×3 (08:07→16:02)
[2022-06-04] MEDS: DOXAZOSIN 2 MG TAB PO SCH (08:08)
[2022-06-04] MEDS: POTASSIUM CHLORIDE 20% 40 MEQ/15 ML UDC GT PRN (10:20)
--- NOTE | 2022-06-04 10:35 | NUR ---
Dr. Espinosa at bedside examining pt. Reported am labs to Awaiting for meeting with family and Dr. Gale this afternoon for further orders.
[2022-06-04] MEDS ORDERED: POTASSIUM CHLORIDE 20% 40 MEQ/15 ML UDC GT SCH (11:00)
--- NOTE | 2022-06-04 12:25 | NUR ---
Seen and examined by Dr. Gale. Dr. Gale having meeting with daughter Elzbieta and ex- Nola regarding pt status. Family changed code status to DNR.
[2022-06-04] MEDS: THERAHONEY GEL 42.5 GM TP SCH (12:30)
--- NOTE | 2022-06-04 13:17 | NUR ---
RT at bedside.
--- NOTE | 2022-06-04 16:00 | NUR ---
Oral care rendered. Suctioned as needed. Turned and repositioned. No distress noted.
[2022-06-04] MEDS: NOREPINEPHRINE 16 MG in DEXTROSE 5% 250 ML IV PRN (17:01)
--- NOTE | 2022-06-04 18:29 | NUR ---
Seen and examined by Dr. Bedoya.
--- NOTE | 2022-06-04 19:25 | NUR ---
RECEIVED REPORT FROM AM SHIFT. PATIENT WAS SEEN AND ASSESSED. PATIENT IS INTUBATED WITH ETT SIZE 7.5 AND SECURED WITH ANCHOR-FAST 23cm @ TEETH. PATIENT IS ON VENTILATOR SUPPORT WITH THE FOLLOWING VENT SETTINGS: AC/VC RR 25, Vt 550, PEEP 5, FiO2 30% WITH SPO2 OF 98%. NOTICED ADEQUATE BILATERAL CHEST RISE AND FALL. FELT SOME CREPITUS AROUND THE CHEST NECK AREA. NOTICED LEFT CHEST TUBE. VENTILATOR PLUGGED IN RED OUTLET AND CONNECTED TO 50 PSI. VENTILATOR ALARMS SET APPROPRIATELY AND AUDIBLE TO ENVIRONMENT. AMBU BAG AT BEDSIDE. PATIENT IS IN NO RESPIRATORY DISTRESS AT THIS TIME. SCHEDULE TX GIVEN ORDERED AND PT TOLERATED WELL WITH NO ADVERSE REACTION. BILATERAL BREATH SOUNDS ON AUSCULTATION; UPPER LOBES: COARSE AND LOWER LOBES: COARSE. SUCTION MODERATE AMOUNT OF YELLOW/WHITE THICK SECRETIONS FROM ETT AND SMALL WHITE THIN ORALLY. WILL CONTINUE TO MONITOR PATIENT.
--- NOTE | 2022-06-04 19:26 | NUR ---
Endorsed to warehouse worker 2nd shift nurse for continuity of care.
--- NOTE | 2022-06-04 19:30 | NUR ---
RECEIVED PATIENT ON BED WITH HOB ELEVATED TO 30 DEGREE; SEDATED WITH CONTINOUS VERSED AND FENTANYL DRIP VIA RIGHT I J CENTRAL LINE; RASS-3. ORALLY INTUBATED AND VENTILATED AT 30% FI02, SO2 97%; WITH CHEST TUBE IN PLACE TO MID AXILLARY DRAINING TO SEROSANGUINOUS OUPUT TO CONTINOUS WALL SUCTION; INTACT. CARDIACSCOPE SHOWS ON SINUS RHYTHM HR 71/MIN, NO ARRHYTHMIAS SEEN. PATIENT IS ALSO ON LEVOPHED DRIP AT 8 MCG/MIN. WITH NON FUNCTIONING HD ACCESS TO LEFT IJ AND MID LINE TO RIGHT UPPER ARM WITH IVF NORMAL SALINE AT 5 ML/HR; PATENT AND INTACT. ABDOMEN IS SOFT, ACTIVE BOWEL SOUNDS. WITH RECTAL TUBE IN PLACE. RUTLEDGE CATH IN SITU DRAINING TO CLOUDY YELLOW URINE OUTPUT; PATENT AND INTACT.
--- NOTE | 2022-06-04 21:00 | NUR ---
RECEIVED REPORT FORM ISELA DAVIS NURSE. PT REMAINS IN STATUS REPORTED ON THE AM SHIFT. EXCEPT BOWEL SOUNDS ARE HYPOACTIVE AND HE HAS SMALL OUT POUCHING ON THE LOWER LEFT QUAD OF HIS ABD. HIS ABD IS GROSSLY DISTENDED AND SOFT TO TOUCH. PT IS REPORTED POSITIVE FOR C-DIFF. ORAL CARE GIVEN
--- NOTE | 2022-06-04 21:56 | NUR ---
IS THE DATE ON THE INDICATIVE OF A DRSG CHANGE OR A NEW THADDEUS PLACEMENT.?
[2022-06-05] VITALS (29 sets, daily range): BP systolic 80–124; BP diastolic 41–61
[2022-06-05] MEDS: PIPERACILLIN/TAZOBACTAM 2.25 GM in DEXTROSE 5% 50 ML IV SCH ×4 (00:06→17:28)
[2022-06-05] MEDS: VANCOMYCIN HCL 25 MG/ML SOLN PO SCH ×4 (00:07→17:30)
[2022-06-05] MEDS: HYDRAGUARD CREAM TP SCH ×2 (00:08→13:00)
[2022-06-05] MEDS: metroNIDAZOLE 500 MG/NS PREMIX 100 ML IV SCH ×3 (06:01→20:43)
[2022-06-05] MEDS: LEVOTHYROXINE 0.05 MG TAB PO SCH (06:02)
[2022-06-05 06:13] LABS: BASOPHILS % (AUTO) 0.2 % (0.0-2.0); HEMATOCRIT 25.4 % (36-52); HEMOGLOBIN 8.4 g/dL (12.0-18.0); LYMPHOCYTES # (AUTO) 0.3 K/uL (2.0-11.5); LYMPHOCYTES % (AUTO) 1.5 % (20.5-51.1); MEAN CORPUSCULAR HEMOGLOBIN 30 pg (27-31); MEAN CORPUSCULAR HGB CONC 33 g/dL (33-37); MEAN CORPUSCULAR VOLUME 92.3 fL (80-94); MONOCYTES # (AUTO) 0.9 K/uL (0.8-1.0); MONOCYTES % (AUTO) 4.4 % (1.7-9.3); NEUTROPHILS # (AUTO) 18.7 K/uL (1.8-7.7); NEUTROPHILS % (AUTO) 93.9 % (42.2-75.2); PLATELET COUNT (AUTO) 68 K/uL (140-450); RED BLOOD CELL COUNT(AUTO) 2.75 MIL/uL (4.20-6.10); RED CELL DISTRIBUTION WIDTH 16.4 % (11.6-13.7); WHITE BLOOD COUNT (AUTO) 19.9 K/uL (4.8-10.8)
[2022-06-05] MEDS: fentaNYL citrate 1 MG in NACL 0.9% 80 ML IV PRN ×2 (06:19→17:34)
[2022-06-05 06:27] LABS: ANION GAP 21.3 (8-16); CARBON DIOXIDE 18.1 mmol/L (21-32); CHLORIDE 103 mmol/L (98-107); CREATININE 3.8 mg/dL (0.6-1.3); GLUCOSE 109 mg/dL (74-106); POTASSIUM 3.4 mmol/L (3.5-5.1); SODIUM SERUM 139 mmol/L (136-145)
[2022-06-05 07:00] LABS: UREA NITROGEN, BLOOD 152 mg/dL (7-18)
[2022-06-05] MEDS: ALBUTEROL SULFATE/IPRATROPIU 3 ML SOL IH SCH ×3 (07:00→19:14)
--- NOTE | 2022-06-05 07:00 | NUR ---
PT RECIEVED FROM NOC RT ON AC VC 25,550,+5,30%. PT IS NOT IN ANY RESPIRATORY DISTRESS AND IS SATING WELL. PT SEEN IN BED SEDATED AND RESTING, VENT ALARMS ARE SET AND AUDIBLE, WHEELS ARE LOCKED ON VENT, AMBU BAG IS AT BED SIDE. WILL CONTINUE TO MONITOR.
--- NOTE | 2022-06-05 08:00 | NUR ---
ON DUTY RECEIVED THIS PT ON VENT AC/VC 30-550-40%-5. PT SEDATED WITH MIDAZOLAM 1MG/HR AND FENTANYL 1MCG. PT WAS QUIET, VS WAS STABLE. PT WAS ON DNR.
--- NOTE | 2022-06-05 08:15 | NUR ---
RT TALKED TO NURSE PEREZ TO CONTACT DR BECKER ABOUT OBTAINING AN ABG, DR. BECKER THEN PROCESSED THE ORDER INTO THE SYSTEM AND THE RESULTS WERE WALKED TO THE DOCTOR FOLLOWING THE RESULTS.
[2022-06-05] MEDS: methylPREDNISolone SS 125 MG/2 ML VIAL IVP SCH (08:38)
[2022-06-05] MEDS: PANTOPRAZOLE 40 MG INJ VIAL IVP SCH (08:38)
[2022-06-05] MEDS: CITRIC ACID/SODIUM CITRATE 30 ML UDC PO SCH ×3 (08:39→17:23)
[2022-06-05] MEDS: DOXAZOSIN 2 MG TAB PO SCH (08:39)
--- NOTE | 2022-06-05 12:59 | NUR ---
06/05/22 RD FOLLOW UP COMPLETED PLEASE REFER TO NUTRITION ASSESSMENT UNDER CARE ACTIVITY FOR ESTIMATED NUTRITIONAL NEEDS. 1. CONTINUE NEPRO 1.8 @ 40ML/HR WITH FWF: 100 ML Q6H OR PER MD -WILL PROVIDE 100% OF ESTIMATED NUTRIENT NEEDS 2. RECOMMEND PROSOURCE BID FOR WOUND HEALING. 3. MONITOR NUTRITION-RELATED LAB VALUES AND FLUID RETENTION 4. RD TO FOLLOW-3-5 DAYS, MODERATE RISK CAROLINE VALENCIA RD
[2022-06-05] MEDS: THERAHONEY GEL 42.5 GM TP SCH (13:00)
--- NOTE | 2022-06-05 16:26 | NUR ---
DAUGHTER CAME IN TO VISIT PT. PT'S STATUS UPDATED TO THE DAUGHTER.
[2022-06-05] MEDS: FLUCONAZOLE 200 MG/NS PREMIX 100 ML IV SCH (17:27)
--- NOTE | 2022-06-05 19:30 | NUR ---
RECEIVED PT.FROM DAY SHIFT STELLA HARRIS. PT. AOX0. ETT TO VENT A/C VC RATE 25, FIO2 30%, PEEP 5, O2 SAT 95%. PT. WITH LEFT NGT RUNNING NEPRO AT 40 ML/HR WITH 100 ML H2O FLUSH EVERY 6 HRS. IV SITE TO RIGHT UPPER ARM MIDLINE RUNNING NS AT TKO, IV TO RIGHT JUGULAR CENTRAL LINE RUNNING FENTANYL O.5 MCG/KG/HR, VERSED 1 MG/HR AND LEVOPHED DRIP 8 MCG/MIN. LEFT JUGULAR THADDEUS CATHETER WITH DRESSING, DRY AND INTACT. WITH LEFT UPPER MIDAXILLARY CHEST TUBE TO WATERSEAL. RUTLEDGE CATHETER IN PLACED, DRAINING CLEAR YELLOW URINE WITH SEDIMENTS. FLEXI-SEAL IN PLACED. SKIN NOT INTACT, WITH SACRAL WOUND, PLEASE SEE WOUND ASSESSMENT. PT. IS DNR AND C-DIFF (+). PLACED IN COMFORTABLE POSITION. NO S/S OF PAIN. WILL CONT.TO MONITOR.
[2022-06-06] VITALS (29 sets, daily range): BP systolic 88–134; BP diastolic 48–69
[2022-06-06] MEDS: PIPERACILLIN/TAZOBACTAM 2.25 GM in DEXTROSE 5% 50 ML IV SCH ×4 (00:34→17:05)
[2022-06-06] MEDS: HYDRAGUARD CREAM TP SCH ×2 (00:35→12:54)
[2022-06-06] MEDS: MIDAZOLAM MDV 100 MG in NACL 0.9% 80 ML IV PRN (01:16)
--- NOTE | 2022-06-06 03:40 | NUR ---
RIGHT INTERNAL JUGULAR TRIPLE LUMEN CENTRAL CATHETER DRESSING CHANGED. SITE, DRY, PATENT AND INTACT. PROVIDED PERSONAL HYGIENE AND WOUND TO THE SACRUM DRESSING CHANGED. PLACED IN COMFORTABLE POSITION. PT. NO S/S OF PAIN.
[2022-06-06] MEDS: metroNIDAZOLE 500 MG/NS PREMIX 100 ML IV SCH ×3 (04:45→20:51)
[2022-06-06] MEDS ORDERED: NOREPINEPHRINE 4 MG/4 ML VIAL IV ONE (04:52)
[2022-06-06] MEDS: NOREPINEPHRINE 16 MG in DEXTROSE 5% 250 ML IV PRN (04:59)
[2022-06-06] MEDS: VANCOMYCIN HCL 25 MG/ML SOLN PO SCH ×4 (06:00→17:06)
[2022-06-06] MEDS: LEVOTHYROXINE 0.05 MG TAB PO SCH (06:15)
--- NOTE | 2022-06-06 07:00 | NUR ---
RT RECEIVED PT FROM [facility] RT ON VENT SETTINGS AC/VC 25, 550, +5, 30%. PT IS SATING 95%, ALARMS ARE SET AND AUDIBLE, WHEELS ARE LOCKED AND AMBU BAG AT BED SIDE. DURING PT ASSESSMENT, NOTICED POSSIBLE SUBCUTANEOUS EMPHYSEMA STARTING TO DEVELOP ON LEFT UPPER CHEST AREA. CONTACTED DOCTOR WOODALL AT 0800 AND NOTIFIED HIM ABOUT MY FINDINGS. DOCTOR WOODALL STATED HE WOULD LIKE A STAT CXR. Addendum: 06/06/22 at 0813 by Narinder Urias RT PAGED DOCTOR WOODALL AFTER MY FINDINGS THEN DOCTOR WOODALL PAGED RT BACK AT 0800
[2022-06-06 07:15] LABS: BASOPHILS % (AUTO) 0.2 % (0.0-2.0); HEMATOCRIT 26.3 % (36-52); HEMOGLOBIN 8.6 g/dL (12.0-18.0); LYMPHOCYTES # (AUTO) 0.4 K/uL (2.0-11.5); MEAN CORPUSCULAR HEMOGLOBIN 31 pg (27-31); MEAN CORPUSCULAR HGB CONC 33 g/dL (33-37); MEAN CORPUSCULAR VOLUME 93.6 fL (80-94); MONOCYTES # (AUTO) 0.7 K/uL (0.8-1.0); MONOCYTES % (AUTO) 3.9 % (1.7-9.3); NEUTROPHILS # (AUTO) 16.5 K/uL (1.8-7.7); NEUTROPHILS % (AUTO) 93.9 % (42.2-75.2); PLATELET COUNT (AUTO) 72 K/uL (140-450); RED BLOOD CELL COUNT(AUTO) 2.81 MIL/uL (4.20-6.10); WHITE BLOOD COUNT (AUTO) 17.6 K/uL (4.8-10.8)
--- NOTE | 2022-06-06 07:31 | NUR ---
REPORT GIVEN TO KIMBERLY JONES RN FOR CONTINUITY OF CARE. ALL QUESTIONS ANSWERED.
[2022-06-06 08:02] LABS: ANION GAP 21.9 (8-16); CARBON DIOXIDE 18.2 mmol/L (21-32); CHLORIDE 105 mmol/L (98-107); CREATININE 3.7 mg/dL (0.6-1.3); GLUCOSE 110 mg/dL (74-106); POTASSIUM 3.1 mmol/L (3.5-5.1); SODIUM SERUM 142 mmol/L (136-145)
[2022-06-06 08:05] LABS: UREA NITROGEN, BLOOD 163 mg/dL (7-18)
--- NOTE | 2022-06-06 08:31 | NUR ---
ON DUTY RECEIVED THIS PT ON VENT: AC/VC 30-550-40%-5. SEDATED WITH PHENTANYL 0.5MCG AND VERSED 1MG/HR. PT WAS QUIT, NO S/S OF PAIN. BP WAS SUPPORTED WITH LEVEPHED 8MCG. VS STABLE. GTUBE FEEDING IS ON 40ML/HR WITH NEPHRO, NO RESIDUAL. RT FOUND PT ON LEFT CHEST TENDER, SUSPECTED PNEUMO. CXRAY WAS ORDERED STAT BY APPRAL. DOUGLAS.
[2022-06-06] MEDS: CITRIC ACID/SODIUM CITRATE 30 ML UDC PO SCH ×3 (08:41→17:05)
[2022-06-06] MEDS: PANTOPRAZOLE 40 MG INJ VIAL IVP SCH (08:41)
[2022-06-06] MEDS: DOXAZOSIN 2 MG TAB PO SCH (08:43)
[2022-06-06] MEDS: methylPREDNISolone SS 125 MG/2 ML VIAL IVP SCH (08:43)
[2022-06-06] MEDS ORDERED: VANCOMYCIN 750 MG in DEXTROSE 5% 250 ML IV SCH (09:00)
[2022-06-06] MEDS: fentaNYL citrate 1 MG in NACL 0.9% 80 ML IV PRN (10:12)
--- NOTE | 2022-06-06 10:19 | NUR ---
DR. HERNANDEZ, PULMOLOGIST, CAME DOWN, D/C'D OLD CHEST TUBE AND INSERTED NEW ONE IN LEFT CHEST. HE ALSO ORDER TO D/C VERSED AND STARTED PRECEDEX DRIP.
--- NOTE | 2022-06-06 11:04 | NUR ---
RT AT BEDSIDE WITH DR. WOODALL, DOCTOR PLACED NEW UPPER LEFT CHEST TUBE, AND VERBALLY TOLD RT TO ADJUST VENTILATOR SETTINGS TO RATE OF 20 AND TIDAL VOLUME OF 400. RT THEN CONTACTED AT 1100, DR. WOODALL FOR F/U ABG IN AN HOUR, AND ADJUST PLACEMENT OF ETT DEPT, RECEIVED TELEPHONE ORDERS FOR ABG AND TO ADJUST ETT WITH A F/U CXR AND TELEPHONE RESULTS BACK TO DR. WOODALL.
--- NOTE | 2022-06-06 12:00 | NUR ---
RT VERIFIED ABG RESULTS VIA TELEPHONE CALL WITH DR. WOODALL, AND STILL AWAITING CXR ON NEW ETT PLACEMENT.
[2022-06-06] MEDS: THERAHONEY GEL 42.5 GM TP SCH (12:54)
--- NOTE | 2022-06-06 18:18 | NUR ---
PT IS QUIT AND FEE OF PAIN. PNETANYL DRIP ALSO TURNED OFF. LEVEPHED TRIP TITRIED OFF WELL.
--- NOTE | 2022-06-06 19:30 | NUR ---
REPORT GIVEN BY DAY SHIFT, STELLA HARRIS. PT. RESPOND TO TACTILE STIMULI. CONT. ON ETT TO VENT A/C VC RATE 20, FIO2 30%, TV 400, PEEP 5 AND O2 SAT 97%. IV SITE TO RIGHT UPPER ARM MIDLINE DRY, PATENT AND INTACT, RUNNING NS AT TKO, IV SITE TO RIGHT INTERNAL JUGULAR CENTRAL LINE DRY, PATENT AND INTACT, CAPPED AND FLUSHED. LEFT INTERNAL JUGULAR THADDEUS CATHETER NON FUNCTIONAL AND MD AWARE.PT. IS IN DNR STATUS. LEFT NGT IN PLACED AND RUNNING NEPRO AT 40 ML/HR, 100 H2O FLUSHED EVERY 6 HRS. LEFT UPPER MIDAXILLARY CHEST TUBE RE-INSERTED PER MD. RUTLEDGE CATHETER IN PLACED WITH CLOUDY, YELLOW URINE WITH SEDIMENTS. FLEXI-SEAL INTACT. SKIN NOT INTACT TO SACRAL, PLS. SEE WOUND ASSESSMENT. REPOSITIONED, PLACED IN COMFORTABLE POSITION, BEDLOCK. NO S/S OF PAIN AT THIS TIME. WILL CONT. TO MONITOR.
[2022-06-07] VITALS (27 sets, daily range): BP systolic 96–148; BP diastolic 25–65
[2022-06-07] MEDS: PIPERACILLIN/TAZOBACTAM 2.25 GM in DEXTROSE 5% 50 ML IV SCH (00:23)
[2022-06-07] MEDS: VANCOMYCIN HCL 25 MG/ML SOLN PO SCH ×4 (00:24→17:51)
[2022-06-07] MEDS: HYDRAGUARD CREAM TP SCH ×2 (01:25→12:44)
--- NOTE | 2022-06-07 01:33 | NUR ---
SITE OF RIGHT INTERNAL JUGULAR CENTRAL LINE NOTED DRESSING TAPE COMING OFF. PLACED A NEW DRESSING AND APPLIED STERILE TECHNIQUE.
[2022-06-07] MEDS: POTASSIUM CHLORIDE 20% 40 MEQ/15 ML UDC GT PRN ×2 (02:32→09:34)
--- NOTE | 2022-06-07 02:42 | NUR ---
K LEVL 3.1 AND POTASSIUM CHLORIDE 40MEQ PRN GIVEN TO NGT.
[2022-06-07] MEDS: metroNIDAZOLE 500 MG/NS PREMIX 100 ML IV SCH ×3 (04:47→20:56)
[2022-06-07 05:53] LABS: BASOPHILS % (AUTO) 0.2 % (0.0-2.0); HEMATOCRIT 24.9 % (36-52); LYMPHOCYTES # (AUTO) 0.4 K/uL (2.0-11.5); MEAN CORPUSCULAR HEMOGLOBIN 31 pg (27-31); MEAN CORPUSCULAR HGB CONC 32 g/dL (33-37); MEAN CORPUSCULAR VOLUME 95.1 fL (80-94); MONOCYTES # (AUTO) 0.6 K/uL (0.8-1.0); MONOCYTES % (AUTO) 3.3 % (1.7-9.3); NEUTROPHILS # (AUTO) 18.1 K/uL (1.8-7.7); NEUTROPHILS % (AUTO) 94.5 % (42.2-75.2); PLATELET COUNT (AUTO) 67 K/uL (140-450); RED BLOOD CELL COUNT(AUTO) 2.61 MIL/uL (4.20-6.10); RED CELL DISTRIBUTION WIDTH 17.1 % (11.6-13.7); WHITE BLOOD COUNT (AUTO) 19.2 K/uL (4.8-10.8)
[2022-06-07] MEDS: LEVOTHYROXINE 0.05 MG TAB PO SCH (05:58)
[2022-06-07 06:03] LABS: ANION GAP 20.7 (8-16); CARBON DIOXIDE 19.7 mmol/L (21-32); CHLORIDE 106 mmol/L (98-107); CREATININE 3.7 mg/dL (0.6-1.3); GLUCOSE 106 mg/dL (74-106); POTASSIUM 3.4 mmol/L (3.5-5.1); SODIUM SERUM 143 mmol/L (136-145)
[2022-06-07 06:33] LABS: UREA NITROGEN, BLOOD 166 mg/dL (7-18)
[2022-06-07] MEDS: ALBUTEROL SULFATE/IPRATROPIU 3 ML SOL IH SCH ×3 (06:58→19:00)
--- NOTE | 2022-06-07 07:16 | NUR ---
REPORT GIVEN TO KIMBERLY JONES RN FOR CONTINUITY OF CARE. ALL QUESTIONS ANSWERED.
--- NOTE | 2022-06-07 07:19 | NUR ---
K LEVEL 3.4, HGB 8.0, CREATININE 3.7. ENDORSED TO DAY SHIFT RN. I MENTIONED THAT THERE IS A PRN ORDER FOR K LEVEL LESS THAN 3.5.
[2022-06-07] MEDS ORDERED: DEXMEDETOMIDINE HCL 400 MCG in NACL 0.9% 96 ML IV PRN (08:00)
[2022-06-07] MEDS: DOXAZOSIN 2 MG TAB PO SCH (09:32)
[2022-06-07] MEDS: PANTOPRAZOLE 40 MG INJ VIAL IVP SCH (09:37)
[2022-06-07] MEDS: CITRIC ACID/SODIUM CITRATE 30 ML UDC PO SCH ×3 (09:37→17:50)
[2022-06-07] MEDS: THERAHONEY GEL 42.5 GM TP SCH (12:45)
[2022-06-07] MEDS: FLUCONAZOLE 200 MG/NS PREMIX 100 ML IV SCH (17:51)
--- NOTE | 2022-06-07 19:25 | NUR ---
REPORT GIVEN BY CHARGE NURSE STELLA ROBLEDO. PT.REMAINS FLAT AFFECT, RESPONSE BY OPENING EYES TO TACTILE STIMULI. CONT. ON ETT TO VENT A/C VC RATE 20, FIO2 30%, TV 400 AND PEEP 5. SINUS TACHYCARDIA HR 103 ON THE MONITOR. IV SITE TO RIGHT INTERNAL JUGULAR CENTRAL LINE, PATENT AND INTACT, INFUSING NS AT TKO. IV TO RIGHT UPPER ARM MIDLINE CAPPED AND FLUSHED. LEFT JUGULAR THADDEUS CATHETER DRY AND INTACT AND NON FUNCTIONAL. NGT TO LEFT SIDE, PLACEMENT VERIFIED, INPLACED, RUNNING NEPRO 40ML/HR. RUTLEDGE CATHETER DRAINING CLEAR, YELLOW URINE. FLEXI-SEAL INTACT. BEDLOCK AND PLACED PT. IN COMFORTABLE POSITION. NO S/S OF PAIN AND WILL CONT.TO MONITOR.
[2022-06-08] VITALS (26 sets, daily range): BP systolic 64–117; BP diastolic 33–66
[2022-06-08] MEDS: VANCOMYCIN HCL 25 MG/ML SOLN PO SCH ×2 (00:07→06:05)
[2022-06-08] MEDS: HYDRAGUARD CREAM TP SCH ×2 (01:00→13:40)
[2022-06-08] MEDS ORDERED: DEXMEDETOMIDINE HCL 100 MCG/ML 2 ML VIAL IV ONE (02:46)
--- NOTE | 2022-06-08 03:01 | NUR ---
PT. NOTED TO BE AWAKE AND MODERATE RESTLESSNESS. WHEN PLACED STETHOSCOPE TO LISTEN TO HIS LUNG SOUNDS, NOTED A FACIAL GRIMACE. STARTED PRECEDEX DRIP 400 MGC ORDERED TO KEEP RASS -2. WILL CONT. TO MONITOR.
--- NOTE | 2022-06-08 04:34 | NUR ---
PT. CONTINUE ON LEFT NGT FEEDING NEPRO AT 40 ML/HR. NGT FEEDING PLACEMENT CHECKED AND VERIFIED TO BE IN PLACED.
[2022-06-08] MEDS: metroNIDAZOLE 500 MG/NS PREMIX 100 ML IV SCH ×2 (05:29→13:24)
[2022-06-08] MEDS: LEVOTHYROXINE 0.05 MG TAB PO SCH (06:06)
[2022-06-08] MEDS: ALBUTEROL SULFATE/IPRATROPIU 3 ML SOL IH SCH (07:15)
--- NOTE | 2022-06-08 07:15 | NUR ---
PT RECEIVED FROM [facility] RT, ON AC/VC 400,20,+5 , 45%. PT IN NO CURRENT RESPIRATORY DISTRESS, AND LAYING IN SEMIFOWLERS POSITION. VENT ALARMS ARE SET AND AUDIBLE, WHEELS LOCKED AMBU BAG AT BEDSIDE.
--- NOTE | 2022-06-08 07:17 | NUR ---
REPORT GIVEN TO DELANO LAO RN FOR CONTINUITY OF CARE. ALL QUESTIONS ANSWERED.
[2022-06-08 07:58] LABS: HEMOGLOBIN 7.4 g/dL (12.0-18.0); MEAN CORPUSCULAR HEMOGLOBIN 31 pg (27-31); MEAN CORPUSCULAR HGB CONC 32 g/dL (33-37); MEAN CORPUSCULAR VOLUME 95.1 fL (80-94); PLATELET COUNT (AUTO) 67 K/uL (140-450); RED BLOOD CELL COUNT(AUTO) 2.42 MIL/uL (4.20-6.10); RED CELL DISTRIBUTION WIDTH 17.9 % (11.6-13.7); WHITE BLOOD COUNT (AUTO) 16.3 K/uL (4.8-10.8)
[2022-06-08] MEDS ORDERED: VANCOMYCIN PER PHARMACY MC PRN (09:00)
[2022-06-08] MEDS: CITRIC ACID/SODIUM CITRATE 30 ML UDC PO SCH ×2 (09:07→13:26)
[2022-06-08] MEDS: PANTOPRAZOLE 40 MG INJ VIAL IVP SCH (09:07)
[2022-06-08] MEDS: DOXAZOSIN 2 MG TAB PO SCH (09:08)
[2022-06-08 09:10] LABS: LYMPHOCYTES % (MANUAL) 4 % (20-46); MONOCYTES % (MANUAL) 2 % (5-12)
[2022-06-08 09:11] LABS: ALBUMIN 1.1 g/dL (3.4-5.0); ANION GAP 22.7 (8-16); ASPARTATE AMINOTRANSFERASE 22 U/L (15-37); CHLORIDE 108 mmol/L (98-107); CREATININE 3.7 mg/dL (0.6-1.3); GLUCOSE 104 mg/dL (74-106); POTASSIUM 3.7 mmol/L (3.5-5.1); SODIUM SERUM 146 mmol/L (136-145); TOTAL BILIRUBIN 0.3 mg/dL (0.0-1.0)
[2022-06-08 09:12] LABS: UREA NITROGEN, BLOOD 156 mg/dL (7-18)
--- NOTE | 2022-06-08 10:15 | NUR ---
Wound care re-evaluation not done, pt. is not stable to be seen.
[2022-06-08] MEDS ORDERED: VANCOMYCIN HCL 25 MG/ML SOLN PO SCH (12:00)
[2022-06-08] MEDS ORDERED: VANCOMYCIN 500 MG VIAL PO SCH (12:00)
[2022-06-08] MEDS: THERAHONEY GEL 42.5 GM TP SCH (13:41)
--- NOTE | 2022-06-08 13:53 | NUR ---
PT FAMILY, CHRISTIANO DAUGHTER, SHARI PT PARTNER, PT BROTHERS AT BEDSIDE. FAMILY REQUESTS TO WITHDRAW CARE AND PROVIDE COMFORT CARE NOW. CALLED AND SPOKE W DR PENA, HE SPOKE WITH PT SERVICE ENGINEER CHRISTIANO. RECEIVED TELEPHONE ORDERS FROM DR PENA TO WITHDRAW ALL CARE, CHANGE CODE STATUS TO DNR, START MORPHINE DRIP FOR COMFORT, ONCE MORPHINE IS ESTABLISHED, HAVE RT EXTUBATE PT.
[2022-06-08] MEDS ORDERED: MORPHINE SULFATE 50 MG in NACL 0.9% 45 ML IV PRN (13:55)
[2022-06-08] MEDS ORDERED: MORPHINE SULFATE 10 MG/ML VIAL IVP SCH (14:20)
--- NOTE | 2022-06-08 14:35 | NUR ---
INITIATED MORPHINE DRIP AT 3 MG/HR WITH 5 MG BOLUS. NED RICHTER RN. FAMILY AT BEDSIDE.
--- NOTE | 2022-06-08 15:24 | NUR ---
PT EXTUBATED BY RT JAQUELINE AND RT LAUREL. FAMILY AT BEDSIDE, PROVIDED EDUCATION REGARDING TERMINAL EXTUBATION AND END OF LIFE. FAMILY VERBALIZE UNDERSTANDING. WILL CONTINUE TO CLOSELY MONITOR AND TITRATE MORPHINE INDICATED.
--- NOTE | 2022-06-08 15:25 | NUR ---
RT AT BEDSIDE FOR EXTUBATION AT 1525. PT IS NOW EXTUBATED AND IS ON 2LITERS NASAL CANNULA.
[2022-06-08] MEDS ORDERED: MORPHINE SULFATE 250 MG in NACL 0.9% 250 ML IV PRN (18:15)
--- NOTE | 2022-06-08 19:20 | NUR ---
RECEIVED PT. FROM DAY SHIFT, SHILO DOUGLAS. PT. S/P EXTUBATED AND FOR COMFORT MEASURES. PT. FAMILY, ANILA ALVARADO TONY AT THE BEDSIDE AND QUIETLY SPENDING TIME WITH THE PT. CARDIAC RHYTHM SINUS TACHYCARDIA 108. ON NASAL CANULA 2L WITH O2 SAT 91%. DIMINISHED BILATERAL LUNG SOUNDS. ABDOMINAL SOUNDS HYPOACTIVE. IV SITE, RIGHT INTERNAL JUGULAR TRIPLE LUMEN CENTRAL CATHETER, INFUSING MORPHINE SULFATE DRIP AT 12 MG/HR. RIGHT UPPER MIDLINE IV CAPPED AND FLUSHED. LEFT INTERNAL JUGULAR THADDEUS CATHETER NON FUNCTIONAL. SKIN NOT INTACT, PLS. SEE WOUND ASSESSMENT. RUTLEDGE CATHETER IN PLACED TO GRAVITY WITH CLEAR, YELLOW URINE. FLEXI-SEAL INTACT. BEDLOCK AND PLACED PT. IN COMFORTABLE POSITION. WILL CONTINUE TO MONITOR.
[2022-06-09] VITALS: BP 61/27
[2022-06-09 01:00] VITALS: BP 53/27
[2022-06-09 02:09] VITALS: BP 40/21
--- NOTE | 2022-06-09 02:28 | NUR ---
PT. STARTED TO HAVE AN AGONAL HEARTH RHYTHM AT 02:09. PT. DAUGHTER CHRISTIANO, SON IN-LAW GEETHA AND PT. BROTHER ANILA AT THE BEDSIDE. PT. ASYSTOLE AT 02:19 AND PRONOUNCED BY THE CHARGE NURSE. PT. DAUGHTER CHRISTIANO SIGNED THE RECORD AND RELEASE OF . PER CHRISTIANO THEY HAVE A MORTUARY READY AND PROVIDED THE NAME: DELANO AGUILERA, TEL# .
--- NOTE | 2022-06-09 02:52 | NUR ---
I CALLED [facility] AT 0241, SPOKE WITH CHRISTIANO AND BASE ON THE REVIEW PT. CASE CLOSED AND TO RELEASE APPROPRIATELY. REFERRAL# [id number]. THEN CALLED [facility] AT 0249, SPOKE WITH JANICE RUIZ, PROVIDED INFORMATION AND WILL WAIT FOR THEIR CALL IF PT. WILL BE ACCEPTED OR WILL BE RELEASED.
--- NOTE | 2022-06-09 03:00 | NUR ---
RYANNE BADILLO FROM [facility] CALLED BACK AND THEY CLOSED THE CASE, CAN BE RELEASED TO MORTUARY ACCORDING TO RYANNE.
--- NOTE | 2022-06-09 03:11 | NUR ---
NOTIFIED DR. PENA THAT PT. AT 02:19 AM.
--- NOTE | 2022-06-09 03:24 | NUR ---
CALLED ADMITTING AND NOTIFIED PT. , SPOKE TO VIVIEN.
--- NOTE | 2022-06-09 03:27 | NUR ---
I CALLED THE MORTUARY : [facility] . PER INDU THEY WILL ALARM SIGNAL OPERATOR THE BODY IN A COUPLE OF HOURS.
--- NOTE | 2022-06-09 03:28 | NUR ---
[facility] CALLED AND ASKED FOR NAME OF PT. AND WHAT TIME PT. . PROVIDED HER INFORMATION.
[2022-06-09] MEDS ORDERED: COMMUNICATION ORDER MC PRN (06:20)
[2022-06-09] MEDS ORDERED: CLINICAL MONITORING MC PRN (06:20)
== END 2022-06-09 02:20 | DRG 870 ==
LOC: MED 17:14 → MTU 23:19 → MIC 05-28 13:04
PROVIDERS: ADMIT Student in an Organized Health Care Education/Training Program; ATTEND Student in an Organized Health Care Education/Training Program
PROC: 5A1955Z Respiratory Ventilation, Greater than 96 Consecutive Hours (ICD-10-PCS; principal; 2022-05-28)
PROC: 02HV33Z Insertion of Infusion Device into Superior Vena Cava, Percutaneous Approach (ICD-10-PCS; 2022-05-28)
PROC: B548ZZA Ultrasonography of Superior Vena Cava, Guidance (ICD-10-PCS; 2022-05-28)
PROC: 0W9B30Z Drainage of Left Pleural Cavity with Drainage Device, Percutaneous Approach (ICD-10-PCS; 2022-05-28)
PROC: 0BH17EZ Insertion of Endotracheal Airway into Trachea, Via Natural or Artificial Opening (ICD-10-PCS; 2022-05-28)
PROC: 02HV33Z Insertion of Infusion Device into Superior Vena Cava, Percutaneous Approach (ICD-10-PCS; 2022-05-31)
PROC: B548ZZA Ultrasonography of Superior Vena Cava, Guidance (ICD-10-PCS; 2022-05-31)
PROC: 5A1D70Z Performance of Urinary Filtration, Intermittent, Less than 6 Hours Per Day (ICD-10-PCS; 2022-06-01)
PROC: 0WPBX0Z Removal of Drainage Device from Left Pleural Cavity, External Approach (ICD-10-PCS; 2022-06-06)
PROC: 0W9B30Z Drainage of Left Pleural Cavity with Drainage Device, Percutaneous Approach (ICD-10-PCS; 2022-06-06)
DX: A41.9 Sepsis, unspecified organism (principal); I50.43 Acute on chronic combined systolic (congestive) and diastolic (congestive) heart failure; J18.9 Pneumonia, unspecified organism; N17.0 Acute kidney failure with tubular necrosis; J96.01 Acute respiratory failure with hypoxia; R65.21 Severe sepsis with septic shock; S22.42XA Multiple fractures of ribs, left side, initial encounter for closed fracture; E87.0 Hyperosmolality and hypernatremia; J44.0 Chronic obstructive pulmonary disease with (acute) lower respiratory infection; A04.72 Enterocolitis due to Clostridium difficile, not specified as recurrent; N30.01 Acute cystitis with hematuria; I13.0 Hypertensive heart and chronic kidney disease with heart failure and stage 1 through stage 4 chronic kidney disease, or unspecified chronic kidney disease; J93.9 Pneumothorax, unspecified; I46.9 Cardiac arrest, cause unspecified; E03.9 Hypothyroidism, unspecified; N40.0 Benign prostatic hyperplasia without lower urinary tract symptoms; I48.0 Paroxysmal atrial fibrillation; Z20.822 Contact with and (suspected) exposure to COVID-19; J98.2 Interstitial emphysema; G35 Multiple sclerosis; X58.XXXA Exposure to other specified factors, initial encounter; E83.52 Hypercalcemia; D63.8 Anemia in other chronic diseases classified elsewhere; N18.9 Chronic kidney disease, unspecified; Z68.38 Body mass index [BMI] 38.0-38.9, adult; Z79.01 Long term (current) use of anticoagulants; Y93.89 Activity, other specified; Y92.89 Other specified places as the place of occurrence of the external cause; Y99.8 Other external cause status
CPT/HCPCS: 31500; 36415; 36600; 71045; 71275; 76770; 80048; 80053; 80202; 80305; 81001; 82150; 82553; 82803; 82948; 83036; 83605; 83690; 83735; 83880; 83970; 84100; 84436; 84439; 84443; 84479; 84484; 85025; 85610; 85730; 86704; 86706; 86708; 86709; 86803; 87040; 87070; 87081; 87086; 87205; 87340; 89220; 92950; 93005; 93308; 94002; 94003; 94640; 96361; 96365; 96375; 99291; C9113; J0692; J1450; J1644; J1956; J2001; J2250; J2270; J2370; J2430; J2543; J2704; J2930; J3010; J3370; J3475; J3480; J3490; J7030; J7042; J7060; Q0092; Q9967